=== PATIENT | male | born 1930 | race Caucasian/White ===

== ENCOUNTER 2016-06-03 15:50 | Inpatient (IN) | payer OTHER ==
[2016-06-03] MEDS ORDERED: TYLENOL PO PRN (16:09)
[2016-06-03] MEDS ORDERED: MORPHINE 4 MG/ML SYRINGE IVP PRN (16:09)
[2016-06-03] MEDS ORDERED: ATROPINE SULFATE PFS IVP PRN (16:09)
[2016-06-03] MEDS ORDERED: NITROSTAT SL PRN (16:09)
[2016-06-03] MEDS ORDERED: VISTARIL INJ IM PRN (16:09)
[2016-06-03 16:27] LABS: BASOPHILS % (AUTO) 0.3 % (0.0-3.0); EOSINOPHILS # (AUTO) 0.1 K/ul (0.0-0.7); EOSINOPHILS % (AUTO) 1.3 % (0.0-7.0); HEMATOCRIT 38.3 % (42.0-52.0); HEMOGLOBIN 12.8 g/dl (14.0-18.0); IMMATURE GRANULOCYTE % (AUTO) 0.3 % (0.0-5.0); LYMPHOCYTES # (AUTO) 1.1 K/uL (0.60-3.4); MEAN CORPUSCULAR HEMOGLOBIN 31.6 pg (27.0-31.0); MEAN CORPUSCULAR HGB CONC 33.4 (31.8-35.4); MEAN CORPUSCULAR VOLUME 94.6 fl (80.0-94.0); MONOCYTES # (AUTO) 0.1 K/uL (0.4-2.0); MONOCYTES % (AUTO) 1.1 (0-10); PLATELET COUNT 160 10^3/uL (140-440); RED BLOOD COUNT 4.05 10^6/ul (4.70-6.10); WHITE BLOOD COUNT 6.23 K/ul (4.2-10.2)
[2016-06-03 16:35] VITALS: BMI 28.3
--- NOTE | 2016-06-03 16:38 | DI ---
EXAM: Chest one view, frontal view only. HISTORY: Cough, bronchitis. COMPARISON: 05/25/2012. FINDINGS: Post CABG changes noted. There is mild tortuosity of the thoracic aorta. The heart size is normal. There is no pulmonary vascular congestion. Calcified pleural plaquing noted on the lef t. The lungs are clear. No pleural effusion or pneumothorax is seen. No acute osseous abnormality is identified. Since the prior study, there has been no significant interval change. IMPRESSION: No acute cardiopulmonary process.
[2016-06-03] MEDS: ROCEPHIN 1 GM in SODIUM CHLORIDE 100 ML IV SCH (16:39)
[2016-06-03] MEDS: DEXTROSE 5%-1/2NS IV SOLUTION 1,000 ML IV SCH (16:39)
[2016-06-03] MEDS: SOLU-CORTEF 250 MG IVP SCH (16:40)
[2016-06-03] MEDS: ZITHROMAX PO SCH (16:40)
[2016-06-03] MEDS ORDERED: TRAMADOL HCL PO PRN (16:54)
[2016-06-03] MEDS ORDERED: [UNRECOGNIZED DRUG - OTHER] PO PRN (16:54)
[2016-06-03] MEDS ORDERED: ACETAMINOPHEN PO PRN (16:54)
[2016-06-03 17:02] LABS: ALANINE AMINOTRANSFERASE 16 U/L (12-78); ALBUMIN 3.8 g/dL (3.4-5.0); ALBUMIN/GLOBULIN RATIO 1.06; ALKALINE PHOSPHATASE 54 U/L (56-119); ANION GAP 16.1; ASPARTATE AMINO TRANSFERASE 22 U/L (15-37); BILIRUBIN,TOTAL 0.86 mg/dL (0.00-1.20); BLOOD UREA NITROGEN 32 mg/dL (7-18); BUN/CREATININE RATIO 19.39; CALCIUM 9.3 mg/dL (8.2-10.2); CARBON DIOXIDE 24 mmol/L (23-31); CHLORIDE 103 mmol/L (98-107); CREATINE KINASE 115 U/L; CREATININE 1.65 mg/dL (0.60-1.10); GLUCOSE 111 mg/dL (82-115); MYOGLOBIN 92 ng/ml; POTASSIUM 5.1 mmol/L (3.5-5.1); SODIUM 138 mmol/L (136-145); TOTAL PROTEIN 7.4 g/dL (5.8-8.1)
[2016-06-03 17:07] LABS: CREATINE KINASE MB 1.6 ng/ml (0.0-3.6)
[2016-06-03] MEDS: XOPENEX 1.25 MG NEB SCH ×2 (18:52→23:03)
[2016-06-03] MEDS ORDERED: NON-FORMULARY MEDICATION (Simvastatin [Zocor] 20 MG) PO SCH ×22 (21:00)
[2016-06-03] MEDS ORDERED: MIDODRINE HCL 5 MG PO SCH (21:00)
[2016-06-03] MEDS ORDERED: ZOCOR ONE (21:07)
[2016-06-03] MEDS: VALIUM PO SCH (21:09)
[2016-06-03 22:01] LABS: BILIRUBIN,URINE Negative (NEGATIVE); KETONES,URINE Negative (NEGATIVE); LEUKOCYTE ESTERASE ,URINE Negative (NEGATIVE); NITRITE,URINE Negative (NEGATIVE); PH,URINE 5.5 (5-9); PROTEIN,URINE Negative (NEGATIVE); URINE, BLOOD Negative (NEGATIVE)
[2016-06-03 22:02] LABS: ADD URINE MICROSCOPIC NO
[2016-06-04] MEDS: SOLU-CORTEF 250 MG IVP SCH ×4 (00:48→21:15)
[2016-06-04 01:20] LABS: ALBUMIN 3.3 g/dL (3.4-5.0); ALBUMIN/GLOBULIN RATIO 1.03; ANION GAP 14.2; BILIRUBIN,TOTAL 0.5 mg/dL (0.00-1.20); BUN/CREATININE RATIO 20.83; CALCIUM 8.7 mg/dL (8.2-10.2); CREATININE 1.68 mg/dL (0.60-1.10); POTASSIUM 4.2 mmol/L (3.5-5.1); TOTAL PROTEIN 6.5 g/dL (5.8-8.1)
[2016-06-04 01:24] LABS: BASOPHILS # (AUTO) 0.1 K/uL (0-0.2); BASOPHILS % (AUTO) 1.4 % (0.0-3.0); HEMATOCRIT 34.2 % (42.0-52.0); HEMOGLOBIN 11.4 g/dl (14.0-18.0); IMMATURE GRANULOCYTE % (AUTO) 0.8 % (0.0-5.0); LYMPHOCYTES # (AUTO) 0.5 K/uL (0.60-3.4); LYMPHOCYTES % (AUTO) 14.7 (10.0-50.0); MEAN CORPUSCULAR HEMOGLOBIN 31.8 pg (27.0-31.0); MEAN CORPUSCULAR HGB CONC 33.3 (31.8-35.4); MEAN CORPUSCULAR VOLUME 95.3 fl (80.0-94.0); MONOCYTES # (AUTO) 0.1 K/uL (0.4-2.0); MONOCYTES % (AUTO) 1.7 (0-10); NEUTROPHILS # (AUTO) 2.9 K/ul (2.0-6.9); NEUTROPHILS % (AUTO) 81.4; PLATELET COUNT 141 10^3/uL (140-440); RED BLOOD COUNT 3.59 10^6/ul (4.70-6.10); WHITE BLOOD COUNT 3.53 K/ul (4.2-10.2)
[2016-06-04 01:28] LABS: TROPONIN I 0.02 ng/ml (0.0000-0.4000)
[2016-06-04] MEDS ORDERED: SYNTHROID ONE (03:59)
[2016-06-04] MEDS: DEXTROSE 5%-1/2NS IV SOLUTION 1,000 ML IV SCH ×2 (04:55→18:47)
[2016-06-04] MEDS: XOPENEX 1.25 MG NEB SCH ×4 (05:22→22:54)
[2016-06-04] MEDS: LASIX TAB PO SCH (05:42)
[2016-06-04] MEDS ORDERED: SYNTHROID PO SCH (06:30)
[2016-06-04] MEDS ORDERED: ULTRAM PO PRN (07:23)
[2016-06-04] MEDS ORDERED: TYLENOL PO PRN (07:24)
[2016-06-04] MEDS: ROCEPHIN 1 GM in SODIUM CHLORIDE 100 ML IV SCH (08:24)
[2016-06-04] MEDS: ZITHROMAX PO SCH (08:25)
[2016-06-04] MEDS: LANOXIN PO SCH (08:25)
[2016-06-04] MEDS: ASPIRIN EC PO SCH (08:25)
[2016-06-04] MEDS: MIDODRINE PO SCH ×2 (08:25→21:13)
[2016-06-04] MEDS: FLOMAX PO SCH (08:25)
[2016-06-04] MEDS: FERROUS SULFATE PO SCH (08:25)
[2016-06-04] MEDS: MICRO-K CAP PO SCH (08:25)
[2016-06-04] MEDS ORDERED: NON-FORMULARY MEDICATION (Rivaroxaban [Xarelto] 15 MG) PO SCH ×22 (09:00)
[2016-06-04] MEDS ORDERED: NON-FORMULARY MEDICATION (Ferrous Sulfate [Iron] 325 MG) PO SCH ×22 (09:00)
[2016-06-04] MEDS ORDERED: ULTRAM PO SCH (10:00)
--- NOTE | 2016-06-04 11:31 | HP ---
DATE OF SERVICE: 06/03/16 REASON FOR HOSPITALIZATION: Acute bronchitis HISTORY OF PRESENT ILLNESS: This is an 86-year-old male patient who was treated with Z-pack and steroids 7 days ago and didn't help. He is now wheezing with respiratory distress, unable to eat times two days. He has yellowish sputum, maybe fever. No symptoms of CHF/ CAD. Shortness of breath with exertion. Coughing all night, unable to sleep. REVIEW OF SYSTEMS: CONSTITUTIONAL: Fever and fatigue. HEENT: Sinus drainage. No sore throat. RESPIRATORY: No cough, no congestion. CARDIOVASCULAR: No atypical chest pain for coronary artery disease. No angina. No CHF symptoms. No palpitations. Shortness of breath. GASTROINTESTINAL: No melena or abdominal pain. No GERD. GENITOURINARY: No hematuria, no prostatism, no polyuria. DIE MAKER APPRENTICE: No blackout, no dizziness, no headache, no double vision. MUSCULOSKELETAL: Osteoarthritis pain. No joint swelling. ENDOCRINE: No weight loss, no weight gain. SKIN: Not dry, no rash. PSYCHIATRIC: Not anxious, no depression, no suicidal thoughts, no homicidal thoughts. PAST MEDICAL HISTORY: 1. Atrial fibrillation 2. CKD 3. Aortic aneurysm 4. Anemia 5. Peripheral arterial disease 6. Sciatica 7. Osteoarthritis 8. Hypotension PAST SURGICAL HISTORY: 1. Hernia 2. CABG 3. Heart cath 4. Vascular 5. Gallbladder SOCIAL HISTORY: The patient is and is retired. Nonsmoker. No alcohol use. FAMILY HISTORY: Father and mother are . MEDICATIONS: (HOME) 1. Tramadol/Acetaminophen one tab p.o. q.8h p.r.n. 2. Rivaroxaban (Xarelto) 15 mg p.o. daily 3. Digoxin (Lanoxin) 125 mg p.o. daily 4. Tamsulosin (Flomax) 0.4 mg p.o. daily 5. Simvastatin (Zocor) 20 mg p.o. bedtime 6. Potassium Chloride (Micro-K Cap) 10 mEq p.o. daily 7. Midodrine 5 mg p.o. b.i.d. 8. Levothyroxine (Synthroid) 100 mg p.o. daily 9. Furosemide (Lasix) 20 mg p.o. daily 10. Ferrous Sulfate (Iron) 325 mg p.o. daily 11. Diazepam 5 mg p.o. bedtime ALLERGIES: BENICAR (DIZZINESS, OTHER), LISINOPRIL (DIZZINESS, OTHER) PHYSICAL EXAMINATION: V/S: Pulse 82, BP 102/42, temperature 97.7, 02 sat 96%. Weight 201.9 lbs; height 6'0". BMI 27.3. GENERAL APPEARANCE: Oriented times three. Pallor positive. Skin is dry. HEENT: Normal. NECK: No JVP, no bruits. RESPIRATORY: Wheezing bilaterally. CARDIOVASCULAR: S1, S2, no S3, no murmurs. No cyanosis, clubbing. No ascites. GI/ABDOMEN: No tenderness. Bowel sounds are active. EXTREMITIES: No edema, pulses +1, equal. DIE MAKER APPRENTICE: Deep tendon reflexes, sensory, motor and gait all normal. RECTAL/PROSTATE: 04/02 (2.1) Prostate; Colonoscopy Dr. Powers/[place], 2013. ASSESSMENT: 1. ACUTE BRONCHITIS/PLEURITIC PAIN 2. HYPERTENSION 3. HISTORY OF ATRIAL FIBRILLATION 4. SCIATICA 5. DYSLIPIDEMIA 6. ANEMIA 7. PERIPHERAL ARTERIAL DISEASE 8. AORTIC ANEURYSM 9. CABG/CAD 10. CHRONIC KIDNEY DISEASE, STAGE 3 11. OSTEOARTHRITIS, RIGHT HIP PLAN: 1. Admit with routine telemetry orders 2. 2 cc Decadron IM 3. Regular diet 4. 1000 cc D5/1/2 NS 12 hourly 5. Solu-Cortef 125 mg now and q8.hr 6. Rocephin 1 mg IV PB q.24hr 7. Zithromax 500 mg p.o. daily times 3 days 8. Sputum for culture and sensitivity 9. Continue all medications 10. Daily CBC/CMP 11. Xopenex nebs q.i.d. TIME SPENT: More than 70 minutes. MTDD
[2016-06-04] MEDS ORDERED: LANOXIN IVP STA ×2 (13:26→16:27)
[2016-06-04] MEDS: TYLENOL PO SCH ×2 (14:00→21:15)
[2016-06-04] MEDS: ULTRAM PO SCH ×2 (14:00→21:14)
[2016-06-04] MEDS: XARELTO PO SCH (17:27)
[2016-06-04] MEDS: ZOCOR PO SCH (21:13)
[2016-06-04] MEDS: VALIUM PO SCH (21:14)
[2016-06-05] MEDS: XOPENEX 1.25 MG NEB SCH ×4 (04:55→23:05)
[2016-06-05] MEDS: SYNTHROID PO SCH (05:48)
[2016-06-05] MEDS: LASIX TAB PO SCH (05:48)
[2016-06-05] MEDS: TYLENOL PO SCH ×3 (05:48→21:03)
[2016-06-05] MEDS: DEXTROSE 5%-1/2NS IV SOLUTION 1,000 ML IV SCH (05:49)
[2016-06-05] MEDS: SOLU-CORTEF 250 MG IVP SCH ×3 (05:49→21:05)
[2016-06-05] MEDS: ULTRAM PO SCH ×3 (05:49→21:03)
[2016-06-05 06:07] LABS: BASOPHILS % (AUTO) 0.1 % (0.0-3.0); HEMATOCRIT 34.4 % (42.0-52.0); HEMOGLOBIN 11.3 g/dl (14.0-18.0); IMMATURE GRANULOCYTE % (AUTO) 0.7 % (0.0-5.0); LYMPHOCYTES # (AUTO) 0.7 K/uL (0.60-3.4); MEAN CORPUSCULAR HEMOGLOBIN 31.3 pg (27.0-31.0); MEAN CORPUSCULAR HGB CONC 32.8 (31.8-35.4); MEAN CORPUSCULAR VOLUME 95.3 fl (80.0-94.0); MONOCYTES # (AUTO) 0.4 K/uL (0.4-2.0); MONOCYTES % (AUTO) 3.3 (0-10); NEUTROPHILS # (AUTO) 9.9 K/ul (2.0-6.9); NEUTROPHILS % (AUTO) 89.9; PLATELET COUNT 161 10^3/uL (140-440); RED BLOOD COUNT 3.61 10^6/ul (4.70-6.10); WHITE BLOOD COUNT 11.02 K/ul (4.2-10.2)
[2016-06-05 06:29] LABS: ALBUMIN 3.3 g/dL (3.4-5.0); ALBUMIN/GLOBULIN RATIO 1.03; ANION GAP 15.5; BILIRUBIN,TOTAL 0.26 mg/dL (0.00-1.20); BUN/CREATININE RATIO 23.44; CALCIUM 8.7 mg/dL (8.2-10.2); CREATININE 1.45 mg/dL (0.60-1.10); POTASSIUM 4.5 mmol/L (3.5-5.1); TOTAL PROTEIN 6.5 g/dL (5.8-8.1)
[2016-06-05] MEDS: ASPIRIN EC PO SCH (08:51)
[2016-06-05] MEDS: LANOXIN PO SCH (08:52)
[2016-06-05] MEDS: FLOMAX PO SCH (08:52)
[2016-06-05] MEDS: FERROUS SULFATE PO SCH (08:52)
[2016-06-05] MEDS: MICRO-K CAP PO SCH (08:53)
[2016-06-05] MEDS: MIDODRINE PO SCH ×2 (08:53→21:03)
[2016-06-05] MEDS: ZITHROMAX PO SCH (08:54)
[2016-06-05] MEDS: ROCEPHIN 1 GM in SODIUM CHLORIDE 100 ML IV SCH (08:54)
--- NOTE | 2016-06-05 13:08 | PCM.PROG ---
Attending Provider: ATTENDING PROVIDER: Dr. PASHA LEWIS DATE OF SERVICE: 06/04/16 SUBJECTIVE: This 86 year old WHITE/ M was hospitalized 06/03/16. The patient is hospitalized with acute bronchitis and bilateral wheezing of a couple weeks duration. The patient's condition has improved markedly. No audible wheezing. REVIEW OF SYSTEMS: CONSTITUTIONAL: No night sweats. No fatigue, malaise, lethargy. No fever or chills. HEENT: Eyes: No visual changes. No eye pain. No eye discharge. ENT: No runny nose. No epistaxis. No sinus pain. No odynophagia. No congestion. RESPIRATORY: No cough, no congestion. No hemoptysis. CARDIOVASCULAR: No angina symptoms. No CHF symptoms. No atypical chest pain for CAD. No palpitations. Breathing is better. GASTROINTESTINAL: Good appetite. No abdominal pain. No nausea or vomiting. No diarrhea or constipation. No hematemesis. No hematochezia. GENITOURINARY: No urgency. No frequency. No dysuria. No hematuria. No obstructive symptoms. No discharge. No pain. No significant abnormal bleeding. MUSCULOSKELETAL: No musculoskeletal pain; no joint swelling. NEUROLOGICAL: Awake, alert, oriented to time, place and person. No headache. No neck pain. No syncope. No seizures. No dizziness. PSYCHIATRIC: Not anxious. No depression. No suicidal thoughts. No homicidal thoughts. SKIN: No rash. No lesions. No wounds. ENDOCRINE: No unexplained weight loss. No weight gain. HEMATOLOGIC/LYMPHATIC: No anemia. No purpura. No petechiae. No prolonged or excessive bleeding. No palpable lymph nodes. PHYSICAL EXAMINATION: GENERAL: The patient is awake, alert and oriented, sitting up in bed in no distress. VITAL SIGNS: Temperature 96.9 F, Pulse 93, Respiratory Rate 18, BP 112/70, Pulse Ox 96% HEENT: Head normocephalic, atraumatic. Eyes: Extraocular muscles are intact. Pupils are equal, round and reactive to light and accommodation. Ears: No lesions. Nose appeared normal. Throat: No exudate or erythema. NECK: Supple. No JVD, no carotid bruit. No lymphadenopathy or thyromegaly. LUNGS: Decreased breath sounds, faint wheeze, good air entry. Percussion note normal. Chest symmetrical. HEART: S1, S2, no S3. No murmurs. No cyanosis or clubbing. No ascites. Pulses: Dorsalis pedis and posterior tibial pulses +1 to +2 both sides. ABDOMEN: Soft. Non-tender. Bowel sounds active. No CVA tenderness. No mass felt. EXTREMITIES: No edema. Full range of motion of all extremities, equal. NEUROLOGIC: No focal deficit. Cranial nerves II through XII are grossly intact. No headache, no double vision or headache. SKIN: Not dry. Intact. Turgor-better. LYMPHATIC: No palpable lymph nodes/no lymphedema. MUSCULOSKELETAL: Normal joints with no swelling. Muscle tone is normal. LAB REVIEW: 06/04/16 00:57 06/04/16 00:57 06/04/16 00:57: WBC 3.53 L, RBC 3.59 L, Hgb 11.4 L, Hct 34.2 L, MCV 95.3 H, MCH 31.8 H, MCHC 33.3, RDW Coeff of Lloyd 11.9, Plt Count 141, Immature Gran % (Auto) 0.8, Neut % (Auto) 81.4, Lymph % (Auto) 14.7, [place] % (Auto) 1.7, Eos % (Auto) 0.0, Baso % (Auto) 1.4, Immature Gran # (Auto) 0.0, Neut # 2.9, Lymph # 0.5 L, [place] # 0.1 L, Eos # 0.0, Baso # 0.1, Sodium 138, Potassium 4.2, Chloride 101, Carbon Dioxide 27, Anion Gap 14.2, BUN 35 H, Creatinine 1.68 H, Estimated GFR ( MDRD) 39.00, BUN/Creatinine Ratio 20.83, Glucose 207 H D, Calcium 8.7, Total Bilirubin 0.50, AST 19, ALT 14, Alkaline Phosphatase 48 L, Total Creatine Kinase 88, Myoglobin 66, Troponin I 0.0200, Total Protein 6.5, Albumin 3.3 L, Globulin 3.2, Albumin/Globulin Ratio 1.03 06/03/16 20:45: Urine Color Yellow, Urine Clarity Clear, Urine pH 5.5, Ur Specific [place] 1.015, Urine Protein Negative, Urine Glucose (UA) Negative, Urine Ketones Negative, Urine Blood Negative, Urine Nitrite Negative, Urine Bilirubin Negative, Urine Urobilinogen 0.2, Ur Leukocyte Esterase Negative 06/03/16 16:20: WBC 6.23, RBC 4.05 L, Hgb 12.8 L, Hct 38.3 L, MCV 94.6 H, MCH 31.6 H, MCHC 33.4, RDW Coeff of Lloyd 12.0, Plt Count 160, Immature Gran % (Auto) 0.3, Neut % (Auto) 80.0, Lymph % (Auto) 17.0, [place] % (Auto) 1.1, Eos % (Auto) 1.3, Baso % (Auto) 0.3, Immature Gran # (Auto) 0.0, Neut # 5.0, Lymph # 1.1, [place] # 0.1 L, Eos # 0.1, Baso # 0.0, Sodium 138, Potassium 5.1, Chloride 103, Carbon Dioxide 24, Anion Gap 16.1, BUN 32 H, Creatinine 1.65 H, Estimated GFR ( MDRD) 40.00, BUN/Creatinine Ratio 19.39, Glucose 111, Calcium 9.3, Total Bilirubin 0.86, AST 22, ALT 16, Alkaline Phosphatase 54 L, Total Creatine Kinase 115, CK-MB (CK-2) 1.6, CK-MB (CK-2) % 1.11831, Myoglobin 92, Troponin I < 0.0100, Total Protein 7.4, Albumin 3.8, Globulin 3.6, Albumin/Globulin Ratio 1.06 ASSESSMENT: 1. Acute bronchitis/pneumonitis/dehydration with renal azotemia, improving 2. Atrial fibrillation with rapid ventricular response in the beginning 3. Chronic lung disease 4. Hypertension history 5. History of syncope, postural for a number of years 6. Hyperglycemia from steroids PLAN: 1. Nebs 2. Steroids 3. Antibiotics 4. Daily CBC and CMP 5. Digoxin level tomorrow morning Plan and coordination of the patient's care discussed in the presence of Final Inspector and nurse. CONDITION: STABLE SCRIBED BY: AIMEE COATES Track Oiler scribed while in presence of service performed by Dr. PASHA LEWIS on 06/04/16 (0750)
--- NOTE | 2016-06-05 13:25 | PCM.PROG ---
Attending Provider: ATTENDING PROVIDER: Dr. PASHA LEWIS DATE OF SERVICE: 06/05/16 SUBJECTIVE: This 86 year old WHITE/ M was hospitalized 06/03/16. The patient is hospitalized with acute bronchitis/pneumonitis/dehydration with renal azotemia which has resolved. Kidney functions are acceptable. Hydration status is improved. The patient is feeling a lot better today. Skin turgor is better. Yesterday, the patient had atrial fibrillation with rapid ventricular response. With change in posture and 0.5 mg of Lanoxin given, rate is acceptable now. REVIEW OF SYSTEMS: CONSTITUTIONAL: No night sweats. No fatigue, malaise, lethargy. No fever or chills. HEENT: Eyes: No visual changes. No eye pain. No eye discharge. ENT: Sinus drainage at night. No epistaxis. No sinus pain. No odynophagia. No congestion. RESPIRATORY: Less cough, no congestion. No hemoptysis. CARDIOVASCULAR: No angina symptoms. No CHF symptoms. No atypical chest pain for CAD. No palpitations. No shortness of breath. GASTROINTESTINAL: No abdominal pain. No nausea or vomiting. No diarrhea or constipation. No hematemesis. No hematochezia. GENITOURINARY: No urgency. No frequency. No dysuria. No hematuria. No obstructive symptoms. No discharge. No pain. No significant abnormal bleeding. MUSCULOSKELETAL: No musculoskeletal pain; no joint swelling. NEUROLOGICAL: Awake, alert, oriented to time, place and person. No headache. No neck pain. No syncope. No seizures. No dizziness. PSYCHIATRIC: Not anxious. No depression. No suicidal thoughts. No homicidal thoughts. SKIN: No rash. No lesions. No wounds. ENDOCRINE: No unexplained weight loss. No weight gain. HEMATOLOGIC/LYMPHATIC: No anemia. No purpura. No petechiae. No prolonged or excessive bleeding. No palpable lymph nodes. PHYSICAL EXAMINATION: GENERAL: The patient is awake, alert and oriented, lying/sitting in bed in no distress. VITAL SIGNS: Temperature 96.8 F, Pulse 105, Respiratory Rate 18, BP 126/70, Pulse Ox 95% HEENT: Head normocephalic, atraumatic. Eyes: Extraocular muscles are intact. Pupils are equal, round and reactive to light and accommodation. Ears: No lesions. Nose appeared normal. Throat: No exudate or erythema. NECK: Supple. No JVD, no carotid bruit. No lymphadenopathy or thyromegaly. LUNGS: Mild expiratory wheeze with good air entry. Percussion note normal. Chest symmetrical. HEART: S1, S2, no S3. No murmurs. No cyanosis or clubbing. No ascites. Pulses: Dorsalis pedis and posterior tibial pulses +1 to +2 both sides. ABDOMEN: Soft. Non-tender. Bowel sounds active. No CVA tenderness. No mass felt. EXTREMITIES: No edema. Full range of motion of all extremities, equal. NEUROLOGIC: No focal deficit. Cranial nerves II through XII are grossly intact. No headache, no double vision or headache. SKIN: Not dry. Intact. Turgor-better. LYMPHATIC: No palpable lymph nodes/no lymphedema. MUSCULOSKELETAL: Normal joints with no swelling. Muscle tone is normal. LAB REVIEW: 06/05/16 05:30 06/05/16 05:30 06/05/16 05:30: WBC 11.02 H D, RBC 3.61 L, Hgb 11.3 L, Hct 34.4 L, MCV 95.3 H, MCH 31.3 H, MCHC 32.8, RDW Coeff of Lloyd 12.2, Plt Count 161, Immature Gran % ( Auto) 0.7, Neut % (Auto) 89.9, Lymph % (Auto) 6.0 L, [place] % (Auto) 3.3, Eos % ( Auto) 0.0, Baso % (Auto) 0.1, Immature Gran # (Auto) 0.1, Neut # 9.9 H, Lymph # 0.7, [place] # 0.4, Eos # 0.0, Baso # 0.0, Sodium 140, Potassium 4.5, Chloride 106 , Carbon Dioxide 23, Anion Gap 15.5, BUN 34 H, Creatinine 1.45 H, Estimated GFR (MDRD) 46.00, BUN/Creatinine Ratio 23.44, Glucose 138 H, Calcium 8.7, Total Bilirubin 0.26, AST 22, ALT 14, Alkaline Phosphatase 47 L, Total Protein 6.5, Albumin 3.3 L, Globulin 3.2, Albumin/Globulin Ratio 1.03, Digoxin 1.12 06/04/16 13:32: Digoxin 0.42 L ASSESSMENT: 1. Acute bronchitis/pneumonitis/dehydration, resolved 2. Renal azotemia, resolved 3. Chronic lung disease 4. Atrial fibrillation with rapid ventricular response in the beginning. 5. Hypertension history 6. History of syncope, postural for a number of years 7. Hyperglycemia from steroids PLAN: 1. Continue antibiotics, IV steroids and nebs. 2. Discontinue IV fluids. Plan and coordination of the patient's care discussed in the presence of Palliative Nurse and nurse. CONDITION: Stable SCRIBED BY: AIMEE COATES, Pbx Operator scribed while in presence of service performed by Dr. PASHA LEWIS on 06/05/16 (0801)
[2016-06-05] MEDS: XARELTO PO SCH (17:11)
[2016-06-05] MEDS: ZOCOR PO SCH (21:03)
[2016-06-05] MEDS: VALIUM PO SCH (21:04)
[2016-06-06] MEDS: XOPENEX 1.25 MG NEB SCH ×2 (05:38→11:01)
[2016-06-06] MEDS: ULTRAM PO SCH (06:00)
[2016-06-06] MEDS: TYLENOL PO SCH (06:00)
[2016-06-06 06:23] LABS: BASOPHILS % (AUTO) 0.2 % (0.0-3.0); HEMATOCRIT 32.3 % (42.0-52.0); HEMOGLOBIN 10.8 g/dl (14.0-18.0); IMMATURE GRANULOCYTE % (AUTO) 1.1 % (0.0-5.0); LYMPHOCYTES % (AUTO) 9.6 (10.0-50.0); MEAN CORPUSCULAR HEMOGLOBIN 31.9 pg (27.0-31.0); MEAN CORPUSCULAR HGB CONC 33.4 (31.8-35.4); MEAN CORPUSCULAR VOLUME 95.3 fl (80.0-94.0); MONOCYTES # (AUTO) 0.4 K/uL (0.4-2.0); MONOCYTES % (AUTO) 4.1 (0-10); PLATELET COUNT 152 10^3/uL (140-440); RED BLOOD COUNT 3.39 10^6/ul (4.70-6.10); WHITE BLOOD COUNT 10.64 K/ul (4.2-10.2)
[2016-06-06] MEDS: SOLU-CORTEF 250 MG IVP SCH (06:27)
[2016-06-06] MEDS: SYNTHROID PO SCH (06:32)
[2016-06-06] MEDS: LASIX TAB PO SCH (06:32)
[2016-06-06 06:40] LABS: ALBUMIN/GLOBULIN RATIO 1.03; ANION GAP 13.4; BILIRUBIN,TOTAL 0.31 mg/dL (0.00-1.20); BUN/CREATININE RATIO 21.87; CALCIUM 8.4 mg/dL (8.2-10.2); CREATININE 1.28 mg/dL (0.60-1.10); POTASSIUM 4.4 mmol/L (3.5-5.1); TOTAL PROTEIN 5.9 g/dL (5.8-8.1)
[2016-06-06] MEDS: ASPIRIN EC PO SCH (08:59)
[2016-06-06] MEDS: FERROUS SULFATE PO SCH (09:01)
[2016-06-06] MEDS: ROCEPHIN 1 GM in SODIUM CHLORIDE 100 ML IV SCH (09:01)
[2016-06-06] MEDS: MIDODRINE PO SCH (09:01)
[2016-06-06] MEDS: FLOMAX PO SCH (09:01)
[2016-06-06] MEDS: MICRO-K CAP PO SCH (09:01)
[2016-06-06] MEDS: LANOXIN PO SCH (09:01)
--- NOTE | 2016-06-06 09:42 | PCM.PROG ---
Attending Provider: ATTENDING PROVIDER: Dr. PASHA LEWIS DATE OF SERVICE: 06/06/16 SUBJECTIVE: This 86 year old WHITE/ M was hospitalized 06/03/16. The patient is hospitalized with acute bronchitis, dehydration and renal azotemia. The patient 's condition has improved remarkably, is not in distress. He states he is feeling a lot better. Appetite is improved. He has only a mild cough. REVIEW OF SYSTEMS: CONSTITUTIONAL: No night sweats. No fatigue, malaise, lethargy. No fever or chills. HEENT: Eyes: No visual changes. No eye pain. No eye discharge. ENT: No runny nose. No epistaxis. No sinus pain. No odynophagia. No congestion. RESPIRATORY: Mild cough and congestion. No hemoptysis. CARDIOVASCULAR: No angina symptoms. No CHF symptoms. No atypical chest pain for CAD. No palpitations. No shortness of breath. GASTROINTESTINAL: Improved appetite. No abdominal pain. No nausea or vomiting. No diarrhea or constipation. No hematemesis. No hematochezia. GENITOURINARY: No urgency. No frequency. No dysuria. No hematuria. No obstructive symptoms. No discharge. No pain. No significant abnormal bleeding. MUSCULOSKELETAL: No musculoskeletal pain; no joint swelling. NEUROLOGICAL: Awake, alert, oriented to time, place and person. No headache. No neck pain. No syncope. No seizures. No dizziness. PSYCHIATRIC: Not anxious. No depression. No suicidal thoughts. No homicidal thoughts. SKIN: No rash. No lesions. No wounds. ENDOCRINE: No unexplained weight loss. No weight gain. HEMATOLOGIC/LYMPHATIC: No anemia. No purpura. No petechiae. No prolonged or excessive bleeding. No palpable lymph nodes. PHYSICAL EXAMINATION: GENERAL: The patient is awake, alert and oriented, lying/sitting in bed in no distress. VITAL SIGNS: Temperature 96.9 F, Pulse 97, Respiratory Rate 20, BP 124/78, Pulse Ox 93% HEENT: Head normocephalic, atraumatic. Eyes: Extraocular muscles are intact. Pupils are equal, round and reactive to light and accommodation. Ears: No lesions. Nose appeared normal. Throat: No exudate or erythema. NECK: Supple. No JVD, no carotid bruit. No lymphadenopathy or thyromegaly. LUNGS: Decreased breath sounds with mild wheeze. Percussion note normal. Chest symmetrical. HEART: S1, S2, no S3. No murmurs. No cyanosis or clubbing. No ascites. Pulses: Dorsalis pedis and posterior tibial pulses +1 to +2 both sides. ABDOMEN: Soft. Non-tender. Bowel sounds active. No CVA tenderness. No mass felt. EXTREMITIES: No edema. Full range of motion of all extremities, equal. NEUROLOGIC: No focal deficit. Cranial nerves II through XII are grossly intact. No headache, no double vision or headache. SKIN: Not dry. Intact. Turgor-normal. LYMPHATIC: No palpable lymph nodes/no lymphedema. MUSCULOSKELETAL: Normal joints with no swelling. Muscle tone is normal. LAB REVIEW: 06/06/16 06:00 06/06/16 06:00 06/06/16 06:00: WBC 10.64 H, RBC 3.39 L, Hgb 10.8 L, Hct 32.3 L, MCV 95.3 H, MCH 31.9 H, MCHC 33.4, RDW Coeff of Lloyd 12.5, Plt Count 152, Immature Gran % ( Auto) 1.1, Neut % (Auto) 85.0, Lymph % (Auto) 9.6 L, [place] % (Auto) 4.1, Eos % ( Auto) 0.0, Baso % (Auto) 0.2, Immature Gran # (Auto) 0.1, Neut # 9.0 H, Lymph # 1.0, [place] # 0.4, Eos # 0.0, Baso # 0.0, Sodium 143, Potassium 4.4, Chloride 107 , Carbon Dioxide 27, Anion Gap 13.4, BUN 28 H, Creatinine 1.28 H, Estimated GFR (MDRD) 53.00, BUN/Creatinine Ratio 21.87, Glucose 123 H, Calcium 8.4, Total Bilirubin 0.31, AST 30, ALT 21, Alkaline Phosphatase 43 L, Total Protein 5.9, Albumin 3.0 L, Globulin 2.9, Albumin/Globulin Ratio 1.03 ASSESSMENT: 1. ACUTE BRONCHITIS 2. CHRONIC LUNG DISEASE 3. CORONARY ARTERY BYPASS GRAFTING 4. ATRIAL FIBRILLATION PLAN: 1. Discharge home 2. Keflex 500 mg b.i.d. times 7 days 3. Prednisone 10 mg p.o. daily times 7 days 4. Other medications to be continued. 5. Instructed to followup in the office next week Plan and coordination of the patient's care discussed in the presence of Survey Methodologist and nurse. EDUCATION: Discussed with the patient plans for discharge, medications and followup. The side effects of the medications discussed to include side effects of steroids such as avascular necrosis of femoral head, cataracts, diabetes and osteoporosis. The patient verbalizes understanding and is in agreement. CONDITION: Stable SCRIBED BY: AIMEE COATES Roving Sizer scribed while in presence of service performed by Dr. PASHA LEWIS on 06/06/16 ([id number])
[2016-06-06 10:17] VITALS: BP 103/61; TEMP 96.5
--- NOTE | 2016-06-06 10:40 | CM.DICTOOL ---
ADMISSION: 06/03/16 15:50 DISCHARGE: 06/06/16 DATE OF SERVICE: 06/06/16 FINAL DIAGNOSIS ACUTE/CHRONIC BRONCHITIS PLEURITIC TYPE PAIN DEHYDRATION RENAL AZOTEMIA HYPERGLYCEMIA SECONDARY TO STEROIDS CAD AND HISTORY OF [place] S/P CABG, 1988 HISTORY OF ATRIAL FIBRILLATION (XARELTO) HYPOTENSION (MIDODRINE) PERIPHERAL ARTERIAL DISEASE ABDOMINAL AORTIC ANEURYSM DYSLIPIDEMIA CHRONIC KIDNEY DISEASE, STAGE 3 THYROID DISEASE ANEMIA SCIATICA OSTEOARTHRITIS RIGHT HIP ANXIETY FORMER SMOKER (STOPPED 1987) CATARACT EXTRACTIONS HERNIA REPAIR CHOLECYSTECTOMY LAST VITALS Temp Pulse Resp BP Pulse Ox 96.9 F L 97 H 20 124/78 93 L 06/06/16 05:40 06/06/16 05:40 06/06/16 05:40 06/06/16 05:40 06/06/16 05:40 ACTIVE MEDICATIONS Diazepam (Valium) 5 mg PO BEDTIME [facility] Last Admin: 06/05/16 21:04 Dose: 5 mg Digoxin (Lanoxin) 125 mcg PO DAILY [facility] Last Admin: 06/05/16 08:52 Dose: 125 mcg Ferrous Sulfate (Ferrous Sulfate) 324 mg PO DAILY [facility] Last Admin: 06/05/16 08:52 Dose: 324 mg Furosemide (Lasix Tab) 20 mg PO 0630 [facility] Last Admin: 06/06/16 06:32 Dose: 20 mg Levothyroxine Sodium (Synthroid) 100 mcg PO 0630 [facility] Last Admin: 06/06/16 06:32 Dose: 100 mcg Midodrine (Midodrine) 5 mg PO BID [facility] Last Admin: 06/05/16 21:03 Dose: 5 mg Potassium Chloride (Micro-K Cap) 10 meq PO DAILY [facility] Last Admin: 06/05/16 08:53 Dose: 10 meq Rivaroxaban (Xarelto) 15 mg PO QPM [facility] Last Admin: 06/05/16 17:11 Dose: 15 mg Simvastatin (Zocor) 20 mg PO BEDTIME [facility] Last Admin: 06/05/16 21:03 Dose: 20 mg Tamsulosin HCl (Flomax) 0.4 mg PO DAILY [facility] Last Admin: 06/05/16 08:52 Dose: 0.4 mg Tramadol HCl (Ultram) 50 mg PO Q8HR [facility] Last Admin: 06/06/16 06:00 Dose: 50 mg ALLERGIES lisinopril Adverse Reaction (Verified 06/04/16 22:59) Dizziness olmesartan [From Benicar] Adverse Reaction (Verified 06/04/16 22:59) Dizziness NEW PRESCRIPTIONS: KEFLEX 500 MG, TAKE ONE TABLET BY MOUTH TWICE DAILY FOR 7 (SEVEN) DAYS PREDNISONE 10 MG, TAKE ONE TABLET BY MOUTH DAILY FOR 7 (SEVEN) DAYS SMOKING: NONSMOKER DISEASE SPECIFIC EDUCATION: BRONCHITIS HOME MEDICATIONS NEW PRESCRIPTIONS ACTIVITY FOLLOW UP LAB REVIEW: 06/06/16 06:00 06/06/16 06:00 06/06/16 06:00: WBC 10.64 H, RBC 3.39 L, Hgb 10.8 L, Hct 32.3 L, MCV 95.3 H, MCH 31.9 H, MCHC 33.4, RDW Coeff of Lloyd 12.5, Plt Count 152, Immature Gran % ( Auto) 1.1, Neut % (Auto) 85.0, Lymph % (Auto) 9.6 L, [place] % (Auto) 4.1, Eos % ( Auto) 0.0, Baso % (Auto) 0.2, Immature Gran # (Auto) 0.1, Neut # 9.0 H, Lymph # 1.0, [place] # 0.4, Eos # 0.0, Baso # 0.0, Sodium 143, Potassium 4.4, Chloride 107 , Carbon Dioxide 27, Anion Gap 13.4, BUN 28 H, Creatinine 1.28 H, Estimated GFR (MDRD) 53.00, BUN/Creatinine Ratio 21.87, Glucose 123 H, Calcium 8.4, Total Bilirubin 0.31, AST 30, ALT 21, Alkaline Phosphatase 43 L, Total Protein 5.9, Albumin 3.0 L, Globulin 2.9, Albumin/Globulin Ratio 1.03 PLAN: DISCHARGE HOME TODAY RETURN TO SEE DR. LEWIS IN 5-7 DAYS. PLEASE PHONE TO SCHEDULE YOUR APPOINTMENT ([phone]) RESUME YOUR HOME MEDICATIONS PER LIST PROVIDED BY THE NURSING STAFF NEW PRESCRIPTIONS: KEFLEX 500 MG, TAKE ONE TABLET BY MOUTH TWICE DAILY FOR 7 (SEVEN) DAYS PREDNISONE 10 MG, TAKE ONE TABLET BY MOUTH DAILY FOR 7 (SEVEN) DAYS ACTIVITY: GET PLENTY OF REST AT HOME. GRADUALLY INCREASE YOUR ACTIVITY LEVEL ACCORDING TO YOUR TOLERATION DIET: REGULAR DIET TOLERATED STAY WELL HYDRATED SUMMARY: THE PATIENT IS ALERT AND ORIENTED X3. HE CURRENTLY RESIDES AT HOME. PRIOR TO ADMISSION MR. KIMBALL DID NOT REQUIRE DME, HOME HEALTH OR HOMEMAKING SERVICES. AT DISCHARGE HE HAS NO DISCHARGE NEEDS FOR THESE SERVICES. HE DESIRES TO RETURN TO HIS HOME. HIS SKIN TURGOR IS INTACT AND WITHOUT DECUBITUS ULCERS AT DISCHARGE. HE IS AWARE AND AGREEABLE FOR DISCHARGE TODAY. PASHA LEWIS M.D.
--- NOTE | 2016-06-09 10:58 | ECHO2D ---
Date of Exam: 06/06/16 Ordering Physician: PASHA LEWIS Reason for Echo: A-FIB, CABG 1989 M-Mode Normal Adult Results LV Dimensions Normal Adult Results AoV Opening excursions >1.6 >1.6 LVEDD-base- 3.5-5.8 4.9 Ao root dimensions 2.0-3.7 4.1 LVESD-base- 3.1-4.6 L. Atrium dimensions 1.9-3.8 5.0 Post. Wall thickness 0.8-1.1 1.3 IV septum (thickness) 0.7-1.2 1.2 Post. Wall excursion 0.72-1.3 NORMAL Septal motion 0.1 Systolic motion R. Ventricular cavity 1.5-2.0 2.5 LVEF 60% 54% Paradoxical septal wall motion MAYBE 2-D : HYPOKINETIC TO MAYBE PARADOXICAL SEPTAL WALL MOTION, VALVES NORMAL, NO EFFUSION, NO THROMBUS, ENLARGED RIGHT VENTRICLE AND LEFT ATRIAL CAVITIES M-MODE: MV: NORMAL AV: NORMAL TV: NORMAL PV: CHAMBER SIZE: ENLARGED LEFT ATRIAL AND RIGHT VENTRICLE CAVITIES WALL MOTION: HYPOKINETIC SEPTUM/PARADOXICAL MAYBE PERICARDIUM: NORMAL INTERPRETATION: 1. BORDERLINE LEFT VENTRICULAR HYPERTROPHY 2. HYPOKINETIC/PARADOXICAL SEPTAL WALL MOTION 3. ENLARGED LEFT ATRIAL AND RIGHT VENTRICLE CAVITIES 4. LEFT VENTRICULAR EJECTION FRACTION 54% MTDD
--- NOTE | 2016-06-11 09:08 | DS ---
DATE OF SERVICE: 06/06/16 FINAL DIAGNOSIS: 1. Acute/ Chronic bronchitis 2. Pleuritic type pain 3. Dehydration 4. Renal Azotemia 5. Hyperglycemia secondary to steroids 6. Coronary artery disease and history of CA, Status post CABG, 1988 7. History of atrial fibrillation(Xarelto) 8. Hypotension (Midodrine) 9. Peripheral Arterial Disease 10.Abdominal aortic aneurysm 11.Dyslipidemia 12.Chronic kidney disease, stage 3 13.Thyroid disease 14.Anemia 15.Sciatica 16.Osteoarthritis right hip 17.Anxiety 18.Former Smoker (stopped 1987) 19.Cataract extractions 20.Hernia Repair 21.Cholecystectomy LAST VITALS: Temperature 96.9, pulse 97, respiratory rate 20, blood pressure 124/78 and pulse ox 93%. DISCHARGE INSTRUCTIONS: Discharge home today. Return to see Dr. Deng in 5-7 dyas. Resume home medications as per list provided by nursing staff. MEDICATIONS AT DISCHARGE: Valium 5mg PO bedtime Lanoxin 125mcg PO daily Ferrous Sulfate 324mg PO daily Lasix Tab 20mg PO 0630 Synthroid 100mcg PO 0630 Midodrine 5mg PO twice a day Micro-K cap 10 meq Po daily Xarelto 15mg PO QPM Zocor 20mg PO bedtime Flomax 0.4mg PO daily Ultram 50mg PO Q 8 hours. ALLERGIES: Lisinopril Olmesartan NEW PRESCRIPTIONS: Keflex 500mg take one tablet by mouth twice daily for seven days Prednisone 10mg take one tablet by mouth daily for 7 days. DIET INSTRUCTIONS: Regular diet as tolerated. Stay well hydrated. ACTIVITY: Get plenty of rest at home. Gradually increase activity level according to toleration. SMOKING: Non-smoker DISEASE SPECIFIC EDUCATION: Bronchitis Home medications New Prescriptions Activity Followup HOSPITAL COURSE: The patient is an 86 year old white male hospitalized with acute bronchitis/ pneumonitis. The patient was treated with IV antibiotics, Rocephin and Zithromax. He was given IV steroids, NEBS treatment and Oxygen. The patient has audible wheezing bilaterally without out stethoscope. On admission he looked extremely pale and hypertension. His appetite was very poor prior to hospitalization. The patient in the hospital improved remarkably within 24 hours. His wheezing practically subsided and he had very fernanda mild expiratory wheeze at the time of discharge with no distress at all. His atrial fibrillation had rapid ventricular response during the stay in the hospital with breathing treatment and also with dehydration. The patient's kidney functions improved and his hydration status improved. His atrial fibrillation had acceptable ventricular response at the time of discharge with no evidence of any congestive heart failure, Bronchitis symptoms had practically resolved. He was put on antibiotic and steroids as outpatient. At the time of discharge the patient's condition was stable with stable cardiopulmonary status. The patient had an echocardiogram done which showed practically akinetic to hypokinetic septum with good LV posterior wall motion with ejection fraction close to normal. LV size was normal. It is noted that patient had coronary bypass surgery and he has long history of near syncopal episode from postural hypotension. The patient runs relatively more systolic blood pressure. LABS: Hgb 10.8, hct 32, WBC 10,000 normal differential, creatinine 1.2, BUN 28 and potassium 4.4. CONDITION: Stable. TIME SPENT: More than 60 minutes. MTDD
--- NOTE | 2016-06-11 09:09 | PN ---
06/03/16: Level 5 06/04/16: Intermediate 06/05/16: Intermediate 06/06/16: D as in discharge. MTDD
== END 2016-06-06 11:40 | disposition home or self-care (01) | DRG 203 ==
LOC: MEDSURG B 15:50
PROVIDERS: ADMIT Internal Medicine; ATTEND Internal Medicine
DX: J20.9 Acute bronchitis, unspecified (principal); J42 Unspecified chronic bronchitis; I48.91 Unspecified atrial fibrillation; R07.81 Pleurodynia; I12.9 Hypertensive chronic kidney disease with stage 1 through stage 4 chronic kidney disease, or unspecified chronic kidney disease; R94.39 Abnormal result of other cardiovascular function study; R79.89 Other specified abnormal findings of blood chemistry; E86.0 Dehydration; I10 Essential (primary) hypertension; I73.9 Peripheral vascular disease, unspecified; N18.3 Chronic kidney disease, stage 3 (moderate); M16.11 Unilateral primary osteoarthritis, right hip; M54.30 Sciatica, unspecified side; I25.2 Old myocardial infarction; R73.9 Hyperglycemia, unspecified; Z95.1 Presence of aortocoronary bypass graft; Z79.01 Long term (current) use of anticoagulants; Z86.79 Personal history of other diseases of the circulatory system; Z79.899 Other long term (current) drug therapy
CPT/HCPCS: 36415; 80053; 80162; 81001; 82550; 82553; 83874; 84484; 85025; 87070; 93005; 93010; 94640

== ENCOUNTER 2018-12-13 12:30 | Inpatient (IN) ==
[2018-12-13 13:23] VITALS: BMI 26.0
[2018-12-13] MEDS ORDERED: LASIX IVP STA (13:29)
[2018-12-13] MEDS ORDERED: VISTARIL INJ IM PRN (14:23)
[2018-12-13] MEDS ORDERED: NITROSTAT SL PRN (14:23)
[2018-12-13] MEDS ORDERED: TYLENOL PO PRN (14:23)
[2018-12-13] MEDS ORDERED: ATROPINE SULFATE PFS IVP PRN (14:23)
[2018-12-13] MEDS ORDERED: ACETAMINOPHEN PO PRN (14:37)
[2018-12-13] MEDS ORDERED: [UNRECOGNIZED DRUG - OTHER] PO PRN (14:37)
[2018-12-13] MEDS ORDERED: VALIUM PO PRN (14:37)
[2018-12-13] MEDS ORDERED: TRAMADOL HCL PO PRN (14:37)
--- NOTE | 2018-12-13 15:42 | DI ---
Exam: Single view of the chest. Comparison: 12/01/2018. Reason for exam: Short of breath. FINDINGS: No pneumothorax, pleural effusion, or focal consolidation. Patchy ground-glass is seen in the bases. Operative changes are seen after midline sternotomy and CABG. Impression: No pneumothorax, pleural effusion, or focal airspace with mild pulmonary vascular congestion/pneumoni tis.
[2018-12-13] MEDS: COLACE PO SCH (20:51)
[2018-12-13] MEDS: MIDODRINE PO SCH (20:56)
[2018-12-14] MEDS: SYNTHROID PO SCH (05:45)
[2018-12-14] MEDS: LASIX IVP SCH (05:45)
[2018-12-14] MEDS ORDERED: ASPIRIN EC PO SCH (08:00)
[2018-12-14] MEDS: COLACE PO SCH ×2 (08:37→20:38)
[2018-12-14] MEDS: FLOMAX PO SCH (08:37)
[2018-12-14] MEDS: MICRO-K CAP PO SCH (08:37)
[2018-12-14] MEDS: FERROUS SULFATE PO SCH (08:37)
[2018-12-14] MEDS: XARELTO PO SCH (08:38)
[2018-12-14] MEDS: MIDODRINE PO SCH ×2 (08:41→20:37)
--- NOTE | 2018-12-14 08:53 | PCM.PROG ---
"Attending Provider: ATTENDING PROVIDER: Dr. PASHA LEWIS This patient is seen with Jami Kam, Nurse Practitioner. DATE OF SERVICE: 12/14/18 SUBJECTIVE: This 88 year old WHITE/ M was hospitalized 12/13/18. The patient is resting comfortably. He is still short of breath and still with leg edema. Dr. Lewis performed echocardiogram this morning. He has had good urine output. REVIEW OF SYSTEMS: CONSTITUTIONAL: Weakness. No night sweats. No fatigue, malaise, lethargy. No fever or chills. HEENT: Eyes: No visual changes. No eye pain. No eye discharge. ENT: No runny nose. No epistaxis. No sinus pain. No odynophagia. No congestion. RESPIRATORY: No cough, no congestion. No hemoptysis. Shortness of breath. CARDIOVASCULAR: No angina symptoms. No CHF symptoms. No atypical chest pain for CAD. No palpitations. No orthopnea.. GASTROINTESTINAL: Positive for leg edema. No abdominal pain. No nausea or vomiting. No diarrhea or constipation. No hematemesis. No hematochezia. GENITOURINARY: No urgency. No frequency. No dysuria. No hematuria. No obstructive symptoms. No discharge. No pain. No significant abnormal bleeding. MUSCULOSKELETAL: No musculoskeletal pain; no joint swelling. NEUROLOGICAL: Awake, alert, oriented to time, place and person. No headache. No neck pain. No syncope. No seizures. No dizziness. PSYCHIATRIC: Not anxious. No depression. No suicidal thoughts. No homicidal thoughts. SKIN: No rash. No lesions. No wounds. ENDOCRINE: No unexplained weight loss. No weight gain. HEMATOLOGIC/LYMPHATIC: No anemia. No purpura. No petechiae. No prolonged or excessive bleeding. No palpable lymph nodes. PHYSICAL EXAMINATION: GENERAL: The patient is awake, alert and oriented, lying/sitting in bed in no distress. VITAL SIGNS: Temperature 98.2 F, Pulse 80, Respiratory Rate 16, BP 113/74, Pulse Ox 95% HEENT: Head normocephalic, atraumatic. Eyes: Extraocular muscles are intact. Pupils are equal, round and reactive to light and accommodation. Ears: No lesions. Nose appeared normal. Throat: No exudate or erythema. NECK: Supple. No JVD, no carotid bruit. No lymphadenopathy or thyromegaly. LUNGS: Clear to auscultation. Percussion note normal. Chest symmetrical. HEART: Irregular heart beat consistent with atrial fibrillation. S1, S2, no S3. No murmurs. No cyanosis or clubbing. No ascites. Pulses: Dorsalis pedis and posterior tibial pulses +1 to +2 both sides. ABDOMEN: Soft. Non-tender. Bowel sounds active. No CVA tenderness. No mass felt. EXTREMITIES: |+ right lower extremity, +2 left lower extremity edema. Full range of motion of all extremities, equal. NEUROLOGIC: No focal deficit. Cranial nerves II through XII are grossly intact. No headache, no double vision or headache. SKIN: Not dry. Intact. Turgor-normal. LYMPHATIC: No palpable lymph nodes/no lymphedema. MUSCULOSKELETAL: Normal joints with no swelling. Muscle tone is normal. LAB REVIEW: 12/14/18 05:04 12/14/18 05:04 12/14/18 05:04: Sodium 138.0, Potassium 3.91, Chloride 98.7, Carbon Dioxide 34.3 H, Anion Gap 8.91, BUN 18.1, Creatinine 1.28 H, Estimated GFR (MDRD) 53.00 , BUN/Creatinine Ratio 14.14, Glucose 93.2, Calcium 8.64, Total Bilirubin 0.66, AST 22.5, ALT 9.5, Alkaline Phosphatase 57.9, Total Protein 6.30, Albumin 3.39 L , Globulin 2.91, Albumin/Globulin Ratio 1.16 12/14/18 05:04: WBC 4.96, RBC 3.40 L, Hgb 10.6 L, Hct 33.3 L, MCV 97.9 H, MCH 31.2 H, MCHC 31.8, RDW Coeff of Lloyd 12.1, Plt Count 184, Immature Gran % (Auto) 0.2, Neut % (Auto) 63.2, Lymph % (Auto) 20.2, [place] % (Auto) 9.1, Eos % (Auto) 6.7, Baso % (Auto) 0.6, Immature Gran # (Auto) 0.0, Neut # (Auto) 3.1, Lymph # ( Auto) 1.0, [place] # (Auto) 0.5, Eos # (Auto) 0.3, Baso # (Auto) 0.0 12/14/18 05:04: Digoxin 0.83 12/13/18 22:28: Total Creatine Kinase 39.4 L, Troponin I < 0.012 12/13/18 13:58: Sodium 137.7, Potassium 4.36, Chloride 99.5, Carbon Dioxide 35.0 H, Anion Gap 7.56, BUN 20.1 H, Creatinine 1.25 H, Estimated GFR (MDRD) 54.00, BUN/Creatinine Ratio 16.08, Glucose 90.2, Calcium 8.84, Total Bilirubin 0.57, AST 22.0, ALT 10.5, Alkaline Phosphatase 59.0, Total Creatine Kinase 43.4 L, Troponin I < 0.012, Total Protein 6.51, Albumin 3.44 L, Globulin 3.07, Albumin/Globulin Ratio 1.12 12/13/18 13:58: WBC 5.02, RBC 3.34 L, Hgb 10.5 L, Hct 33.0 L, MCV 98.8 H, MCH 31.4 H, MCHC 31.8, RDW Coeff of [place] 12.2, Plt Count 176, Immature Gran % (Auto) 0.4, Neut % (Auto) 59.7, Lymph % (Auto) 24.7, [place] % (Auto) 9.2, Eos % (Auto) 5.2, Baso % (Auto) 0.8, Immature Gran # (Auto) 0.0, Neut # (Auto) 3.0, Lymph # ( Auto) 1.2, [place] # (Auto) 0.5, Eos # (Auto) 0.3, Baso # (Auto) 0.0 12/13/18 13:58: Free T4 1.61 12/13/18 13:50: Urine Color Yellow, Urine Clarity Slightly, Urine pH 6.5, Ur Specific [place] 1.020, Urine Protein Trace, Urine Glucose (UA) Negative, Urine Ketones Negative, Urine Blood 3+, Urine Nitrite Negative, Urine Bilirubin Negative, Urine Urobilinogen 0.2, Ur Leukocyte Esterase 1+, Urine Microscopic RBC 20-30, Urine Microscopic WBC 5-10, Ur Squamous Epith Cells 2-5, Urine Bacteria Trace, Urine Yeast 1+ ASSESSMENT: Please see below. 1. Acute CHF. 2. Leg edema. 3. Left nephrolithiasis. 4. Shortness of breath. PLAN: 1. BNP. 2. Keep legs elevated. Plan and coordination of the patient's care discussed in the presence of Account Financial Manager and nurse. CONDITION: Stable SCRIBED BY: AIMEE COATES Projection Printer scribed while in presence of service performed by Dr. Lewis/Jami Kam APRN on 12/14/18 ([id number])"
[2018-12-14] MEDS ORDERED: NON-FORMULARY MEDICATION (Ferrous Sulfate [Iron] 325 MG) PO SCH (09:00)
[2018-12-14] MEDS ORDERED: NON-FORMULARY MEDICATION (Rivaroxaban [Xarelto] 15 MG) PO SCH (09:00)
--- NOTE | 2018-12-14 11:06 | RS.PTINEVL ---
Subjective - Patient information Date of Evaluation: 12/14/18 Date of Arrival on Unit: 12/13/18 Admitted From:: Home Diagnosis: acute CHF, LE edema, recent falls, balance impaired Usual Living Arrangement: Alone Living Arrangement Comments: lives alone, dtr comes 1-2 times a week to assist. pt has steps to enter home with a handrail. pt currently drives, is able to cook easy meals such as sandwiches and warming left overs. Home Environment: House, Stairs (few), Rail Medical History: Hypertension, CHF, Arthritis Medical History Comments:: afib, CKD stage 3, AAA, ataxia, hypothyroid, hemmorhoids, depression Surgical History: Cholecystectomy, CABG Surgical History Comments:: AAA repair, umbilical hernia repair Medications: see chart Subjective Information/ Patient Comments:: pt states that he feels weak all the time. 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, Drive Current Level of Function: Partially Dependent Current Equipment Used at Home: Rollator; Shower chair Interventions - Objective Patient Orientation: Person, Place, Time, Situation Current Interventions: IV's, Miguel Catheter Observation: pt with non pitting edema BLE Range of Motion - ROM Right Upper Extremity AROM: WFL's Left Upper Extremity AROM: WFL's Right Lower Extremity AROM: WFL's Left Lower Extremity AROM: WFL's Muscle Strength - Muscle Strength Right Upper Extremity Strength: Mild Weakness (grossly 4/5) Left Upper Extremity Strength: Mild Weakness (grossly 4/5) Right Lower Extremity Strength: Mild Weakness (hip flex 4-/5, knee flex/ext 4/5 , ankle DF/PF 4/5) Left Lower Extremity Strength: Mild Weakness (hip flex 4-/5, knee flex/ext 4/5, ankle DF/PF 4/5) Sensation - Sensation Right Upper Extremity Sensation: Intact/Normal Left Upper Extremity Sensation: Intact/Normal Right Lower Extremity Sensation: Intact/Normal Left Lower Extremity Sensation: Intact/Normal Palpation Palpation Findings: None/Normal Balance - Sitting Balance and Reactions Static Sitting Balance: Normal Dynamic Sitting Balance: Good - Standing Balance and Reactions Static Standing Balance: Fair Dynamic Standing Balance: Poor Standing Equilibrium Reactions: Delayed Left, Delayed Right Standing Protective Reactions: Delayed Left, Delayed Right Functional Mobility - Bed Mobility Rolling R/L: Independent Supine to Sit: Supervision - Transfers Sit to Stand: CGA Stand to Sit: CGA - Safety Awareness Safety Awareness: Good OSCAR INDEX SCORE: n/a Ambulation - Ambulation Assistive Device Used: Rollator Orthotic/Prosthetic Device: No Distance: 140ft Assistance needed with Ambulation: CGA Gait Deviations: Forward posture, Short stride, Deviates from path Ambulation Comments: pt requires cues for posture, step length as well as sequencing with rollator rwx. Factors Affecting Ambulation: Decreased Balance, Weakness, Decreased Safety, Limited Endurance Treatment time - Time with patient Length of Evaluation: 26 Total treatment time: 28 Patient Education - Education Patient Education: Activity Modification, Education of Plan of Care Teaching Recipient: Patient Teaching Methods: Discussion, Demonstration Comments: discussion regarding POC as well as safety with transfers and gait. Assessment - Assessment Problem List:: Decreased level of function, Requires training/education, Decreased safety/Risk of falls, Weakness Rehab Potential: Good Further Therapy Indicated?: Yes Candidate for Swing Bed for Therapy Services?: pt would need to be eval by OT and then discuss if appropriate for swing bed due to pt higher functional level. Evaluation Complexity: HISTORY: Medium, EXAM OF BODY SYSTEMS: Medium, CLINICAL PRESENTATION: Medium, CLINICAL DECISION MAKING: Medium Short Term Goals GOAL #1: pt demonstrate independence with bed mobility Goal to be met by: 12/16/18 GOAL #2: Transfer sup to/from sit independently Goal to be met by: 12/16/18 GOAL #3: Sit to/from stand SBA Goal to be met by: 12/16/18 GOAL #4: pt amb with rollator rwx 150ft with CGA improved posture Goal to be met by: 12/16/18 Detention Goals GOAL #1: Sit to/from stand independently Goal to be met by: 12/20/18 GOAL #2: pt amb functional household distances SBA with AAD Goal to be met by: 12/20/18 GOAL #3: Ascend/descend 3 steps with HR SBA Goal to be met by: 12/20/18 Plan Plan of Care: Therapeutic EX, Therapeutic Activity Other:: gait training Frequency of Treatment: 1-2 X day, as tolerated Duration of Treatment: 5-6 days Anticipated Discharge Destination: Home Treatment Diagnosis (ICD 10 Codes): balance impairement R26.81. gait difficulty R 26.2. muscle weakness M62.81 Has the Physician been added for Co-signature?: Yes
--- NOTE | 2018-12-14 11:53 | HP ---
DATE OF SERVICE: 12/13/18 CHIEF COMPLAINT" Leg edema. HISTORY OF PRESENT ILLNESS: This is a 88-year-old male who on Thursday, six days ago had rectal bleed and went to [place] [facility]. He had a CT scan of abdomen which showed kidney stone. He went to [place] and had stent on left side with Alcantar. He was supposed to stone busted with surgery next day and urologist canceled the surgery. Next appointment is on 01/08/19. Complaint of leg swelling. PAST MEDICAL HISTORY: Ataxia Leg edema Left kidney stone CKD3 Anemia Dyslipidemia PAD Hypothyroidism Renal artery stenosis PAST SURGICAL HISTORY: CABGs 1988 GB Hernia repair Aortic aneurysm repair Vascular times two Colonoscopy 06/08 [place], [place] REVIEW OF SYSTEMS: CONSTITUTIONAL: No fever, no fatigue. HEENT: No sinus drainage, no sore throat. RESPIRATORY: No cough, no congestion. CARDIOVASCULAR: Positive for leg edema. Atypical chest pain for coronary artery disease. Shortness of breath with exertion. No angina, CHF symptoms, palpitations. GASTROINTESTINAL: Rectal bleed times two days. No abdominal pain. No GERD. GENITOURINARY: No hematuria, no prostatism, no polyuria. MATCHER OPERATOR: No blackout, no dizziness, no headache, no double vision. MUSCULOSKELETAL: No osteoarthritis pain, no joint swelling. ENDOCRINE: No weight loss, no weight gain. SKIN: Not dry, no rash. PSYCHIATRIC: Not anxious, no depression, no suicidal thoughts, no homicidal thoughts. SOCIAL HISTORY: . Nonsmoker. No alcohol use. Retired. Three children. No ilicit drug use. FAMILY HISTORY: Father is . Mother is . MEDICATIONS: (HOME) Tramadol - Acetaminophen 37.5-325 mg p.o. every 8 hours p.r.n. Levothyroxine 100 mcg p.o. once daily Furosemide 10 mg one p.o. once daily Simvastatin 20 mg one p.o. once daily in the evening (hold) Potassium chloride 10 mEq p.o. once daily Flomax 0.4 mg capsule, extended release 24 hour Diazepam 5 mg one p.o. times one day p.r.n. Midodrine 5 mg one p.o. two times per day Iron one time per day Lanoxin 125 mcg one tablet p.o. four times per week M, W, F, Sat Xarelto 15 mg one tablet p.o. one time per day Docusate Sodium b.i.d. 100 mg ALLERGIES: NKDA PHYSICAL EXAMINATION: V/S: Pulse 104, BP 84/54, 02 sat 94%. 02 sat 94%. Weight 213.6 lbs, height 6'0" . BMI 28.9. Pallor positive. GENERAL APPEARANCE: Oriented times three. HEENT: Normal. NECK: No JVP, no bruits. RESPIRATORY: Lungs are clear. CARDIOVASCULAR: S1, S2, no S3, no murmurs. No cyanosis, clubbing. No ascites. GI/ABDOMEN: No tenderness. Bowel sounds are active. EXTREMITIES: +3 pitting edema, pulses +1, equal. MATCHER OPERATOR: Deep tendon reflexes, sensory, motor and gait all normal. RECTAL/PROSTATE: Prostate 04/02 (2.1). Colonoscopy and EGD 05/08 Dr. Moise. LABS: Free T4 1.6, sodium 137, potassium 4.3, BUN 20, creatinine 1.25, AST 22, ALT 10 , white count 5.0, hemoglobin 10.5, hematocrit 33.3, platelets 176. Urine shows 3+ blood, 1+ leuks. Chest x-ray shows no pneumothorax or with mild pulmonary vascular congestion/pneumonitis. ASSESSMENT: 1. LEG EDEMA, +3 PITTING EDEMA/SHORTNESS OF BREATH 2. LEFT KIDNEY STONE WITH STENT AND ALCANTAR CATHETER/CYSTOURETHROSCOPY WITH INSERTION OF DOUBLE J URETERAL STENT BY MYRA CONTRERAS M.D. 3. HISTORY OF EXTERNAL HEMORRHOID WITH BLEEDING 4. HISTORY OF RECTAL BLEED 5. RIGHT HIP SCIATICA PAIN 6. OSTEOARTHRITIS RIGHT HIP 7. ATAXIA 8. HYPOTENSION 9. HISTORY OF ATRIAL FIBRILLATION ON XARELTO 10. DYSLIPIDEMIA 11. ANEMIA 12. CKD-3 13. PERIPHERAL ARTERIAL DISEASE 14. ABDOMINAL WALL HERNIA 15. CABGs 1988 16. AORTIC ANEURYSM - DR. MONTGOMERY 1987 17. BASAL CELL EAR 18. HYPOTHYROIDISM 19. OSTEOARTHRITIS KNEES - DR. PAGAN 20. FUNGAL INFECTION 21. BASAL CELL RIGHT EAR, DR. ROBINS 22. HISTORY OF RENAL ARTERY STENOSIS PLAN: 1. Admit with routine telemetry orders. 2. Elevate legs. 3. Lasix 20 mg IV now and q.a.m. 4. Lanoxin level a.m. 5. T4 and TSH. 6. Continue all medications. 7. Hold Simvastatin. 8. Weigh daily. 9. Three step oxygen test. 10. Oxygen 2L/cannula. 11. Get records from [facility] for hospital stay to 12/02/18. 12. The patient took Levaquin 500 mg p.o one daily times five days. TIME SPENT: More than 70 minutes. MTDD
[2018-12-15] MEDS: SYNTHROID PO SCH (05:45)
[2018-12-15] MEDS: LASIX IVP SCH (05:45)
[2018-12-15] MEDS ORDERED: TORADOL IVP STA (08:46)
[2018-12-15] MEDS: FLOMAX PO SCH (08:51)
[2018-12-15] MEDS: COLACE PO SCH ×2 (08:51→20:16)
[2018-12-15] MEDS: MICRO-K CAP PO SCH (08:51)
[2018-12-15] MEDS: LANOXIN PO SCH (08:52)
[2018-12-15] MEDS: FERROUS SULFATE PO SCH (08:53)
[2018-12-15] MEDS: XARELTO PO SCH (08:54)
--- NOTE | 2018-12-15 09:04 | PCM.PROG ---
Attending Provider: ATTENDING PROVIDER: Dr. PASHA LEWIS DATE OF SERVICE: 12/15/18 SUBJECTIVE: This 88 year old WHITE/ M was hospitalized 12/13/18 with leg edema, shortness of breath and CHF type symptoms. The patient has history of of left ureteric stone with stent put in by Jovany Quiroz M.D. at [place]. The patient ended up in the office with complaint of being short of breath and leg edema. Condition has improved. REVIEW OF SYSTEMS: CONSTITUTIONAL: No night sweats. No fatigue, malaise, lethargy. No fever or chills. HEENT: Eyes: No visual changes. No eye pain. No eye discharge. ENT: No runny nose. No epistaxis. No sinus pain. No odynophagia. No congestion. RESPIRATORY: No cough, no congestion. No hemoptysis. Mild shortness of breath but is better. CARDIOVASCULAR: No angina symptoms. No CHF symptoms. No atypical chest pain for CAD. No palpitations. No orthopnea.. GASTROINTESTINAL: No abdominal pain. No nausea or vomiting. No diarrhea or constipation. No hematemesis. No hematochezia. GENITOURINARY: No urgency. No frequency. No dysuria. No hematuria. No obstructive symptoms. No discharge. No pain. No significant abnormal bleeding. MUSCULOSKELETAL: No musculoskeletal pain; no joint swelling. NEUROLOGICAL: Awake, alert, oriented to time, place and person. No headache. No neck pain. No syncope. No seizures. No dizziness. PSYCHIATRIC: Not anxious. No depression. No suicidal thoughts. No homicidal thoughts. SKIN: No rash. No lesions. No wounds. ENDOCRINE: No unexplained weight loss. No weight gain. HEMATOLOGIC/LYMPHATIC: No anemia. No purpura. No petechiae. No prolonged or excessive bleeding. No palpable lymph nodes. PHYSICAL EXAMINATION: GENERAL: The patient is awake, alert and oriented, lying/sitting in bed in no distress. VITAL SIGNS: Temperature 98.1 F, Pulse 95, Respiratory Rate 17, BP 91/63, Pulse Ox 96% HEENT: Head normocephalic, atraumatic. Eyes: Extraocular muscles are intact. Pupils are equal, round and reactive to light and accommodation. Ears: No lesions. Nose appeared normal. Throat: No exudate or erythema. NECK: Supple. No JVD, no carotid bruit. No lymphadenopathy or thyromegaly. LUNGS: Decreased breath sounds. Clear to auscultation. Percussion note normal. Chest symmetrical. HEART: S1, S2, no S3. No murmurs. No cyanosis or clubbing. No ascites. Pulses: Dorsalis pedis and posterior tibial pulses +1 to +2 both sides. ABDOMEN: Soft. Non-tender. Bowel sounds active. No CVA tenderness. No mass felt. EXTREMITIES: +1 pitting edema. Full range of motion of all extremities, equal. NEUROLOGIC: No focal deficit. Cranial nerves II through XII are grossly intact. No headache, no double vision or headache. SKIN: Warm and dry. Intact. Turgor-normal. LYMPHATIC: No palpable lymph nodes/no lymphedema. MUSCULOSKELETAL: Normal joints with no swelling. Muscle tone is normal. LAB REVIEW: 12/15/18 04:54 12/15/18 04:54 12/15/18 04:54: Sodium 137.5, Potassium 4.13, Chloride 99.2, Carbon Dioxide 35.4 H, Anion Gap 7.03, BUN 19.6, Creatinine 1.43 H, Estimated GFR (MDRD) 47.00 , BUN/Creatinine Ratio 13.70, Glucose 100.8, Calcium 8.47, Total Bilirubin 0.50 , AST 21.2, ALT 9.1, Alkaline Phosphatase 58.9, Total Protein 6.21 L, Albumin 3.27 L, Globulin 2.94, Albumin/Globulin Ratio 1.11 12/15/18 04:54: WBC 5.81, RBC 3.31 L, Hgb 10.3 L, Hct 32.3 L, MCV 97.6 H, MCH 31.1 H, MCHC 31.9, RDW Coeff of Lloyd 12.2, Plt Count 187, Immature Gran % (Auto) 0.3, Neut % (Auto) 59.6, Lymph % (Auto) 22.5, [place] % (Auto) 10.2 H, Eos % (Auto ) 6.9, Baso % (Auto) 0.5, Immature Gran # (Auto) 0.0, Neut # (Auto) 3.5, Lymph # (Auto) 1.3, [place] # (Auto) 0.6, Eos # (Auto) 0.4, Baso # (Auto) 0.0 12/14/18 05:04: NT-Pro-B Natriuret Pep 1770.000 H ASSESSMENT: Please see below. 1. CHF seems under control. 2. Atrial fibrillation, has somewhat rapid ventricular response on upper side of normal but difficult to add medication because of systolic blood pressure 90 to 100. Lanoxin level is practically normal; do not want to push Lanoxin orally because of abnormal kidney function and age. PLAN: 1. The patient continues to get Lasix 20 mg. 2. Leg elevation. 3. PT. 4. We are in touch with urologist in [place]. Indwellng Miguel catheter stays and will try to get note from urologist for reason of postponing procedure. 5. Change diet to regular diet. 6. Toradol 30 mg IV one dose now. Plan and coordination of the patient's care discussed in the presence of Submarine Diver and nurse. CONDITION: Stable SCRIBED BY: AIMEE COATES Geospatial Technologist scribed while in presence of service performed by Dr. PASHA LEWIS on 12/15/18 ([id number])
--- NOTE | 2018-12-15 09:21 | ECHO2D ---
Date of Exam: 12/14/18 Ordering Physician: DR. PASHA LEWIS Room #: 116 Reason for Echo: CABG, CHF M-Mode Normal Adult Results LV Dimensions Normal Adult Results AoV Opening excursions >1.6 >1.6 LVEDD-base- 3.5-5.8 4.4 Ao root dimensions 2.0-3.7 4.3 LVESD-base- 3.1-4.6 L. Atrium dimensions 1.9-3.8 5.3 Post. Wall thickness 0.8-1.1 1.1 IV septum (thickness) 0.7-1.2 1.1 Post. Wall excursion 0.72-1.3 NORMAL Septal motion 0.4 Systolic motion R. Ventricular cavity 1.5-2.0 NORMAL LVEF 60% 40 -45% Paradoxical septal wall motion NORMAL 2-D : 2-D M Mode Echocardiogram was performed using apical four chamber and left parasternal long and short axis views. Mitral, tricuspid and aortic valves appear to be normal. Contractility of the left ventricle seems to be normal, so is the cavity size. DILATED LEFT ATRIAL CAVITY AND AORTIC ROOT. HYPOKINETIC SEPTAL WALL. There is no pericardial effusion. There is no thrombus noted in the left ventricular or left aortic cavity. No mitral valve prolapse noted. M-MODE: MV: NORMAL AV: NORMAL TV: NORMAL PV: CHAMBER SIZE: DILATED LEFT AORTIC ROOT AND ENLARGED LEFT ATRIAL CAVITY WALL MOTION: HYPOKINETIC SEPTAL WALL PERICARDIUM: NORMAL INTERPRETATION: 1. BORDERLINE LEFT VENTRICULAR HYPERTROPHY 2. HYPOKINETIC SEPTAL WALL--EJECTION FRACTION 40 TO 45% 3. DILATED AORTIC ROOT MTDD
[2018-12-15] MEDS: MIDODRINE PO SCH ×2 (10:08→20:17)
[2018-12-15] MEDS ORDERED: DULCOLAX RC STA (10:53)
[2018-12-15] MEDS ORDERED: DULCOLAX RC ONE (13:02)
--- NOTE | 2018-12-15 13:09 | RS.OTINEVL ---
Subjective - Patient information Date of Evaluation: 12/15/18 Date of Arrival on Unit: 12/14/18 Diagnosis: Afib, left kidney stone, Pitting edema PRECAUTIONS: At risk for falls Usual Living Arrangement: Alone Living Arrangement Comments: Pt lives at home alone. He uses a rollator to walk. He will get out in the yard without any AE and has had falls. Pt has a daughter that is 8 minutes away from him. She comes over 2X a week. He still drives. He has someone mow his yard. Home Environment: House, Stairs (many) Medical History Comments:: left kidney stone, Atrial fib., Leg edema, SOB with exertion, negron catheter Surgical History Comments:: Vascular surgery in left arm, Subjective Information/ Patient Comments:: "I am going to have my eyelid surgery soon. 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 Pt uses a rollator walker. Pt drives himself and shops for himself. Current Level of Function: Partially Dependent Current Equipment Used at Home: Rollator; Shower chair Pain Assessment - Pain Pain Score: 4 Side: left Pain Location Body Site: Knee Pain Aggravating Factors: Changing Position, Exercise/Activity, Sitting, Walking Pain Alleviating Factors: Medication, Sitting Interventions - Objective Patient Orientation: Person, Place, Time, Situation Current Interventions: IV's, Telemetry Observation: Pt is weak and SOA with activity. Pt would benefit from Skilled occupational Therapy. Interventions - ROM Right Upper Extremity AROM: Slight limitation Left Upper Extremity AROM: Slight limitation - Strength Right Upper Extremity Strength: Mild Weakness Left Upper Extremity Strength: Mild Weakness - Sensation Right Upper Extremity Sensation: Intact/Normal Left Upper Extremity Sensation: Intact/Normal Balance - Sitting Balance Static Sitting Balance: Fair Dynamic Sitting Balance: Fair - Standing Balance Static Standing Balance: Poor Dynamic Standing Balance: Poor ADL Skills - Self Feeding Self Feeding: Independent - Grooming Grooming: Independent - Bathing Bathing UE: Independent Bathing LE: CGA - Dressing Dressing UE: Independent Dressing LE: CGA - Toilet Management Toileting Management: CGA Functional Mobility - Bed Mobility Rolling R/L: Independent Scooting: Independent Supine to Sit: Independent Sit to Supine: Independent Comments:: Pt becomes SOA with activity. - Transfers Sit to Stand: CGA Stand to Sit: CGA Stand Pivot Transfers: CGA - Ambulation Weight Bearing Status: FWB Assistance needed with Ambulation: CGA, 1 person assist Comments:: Pt using a Rollator walker at this time. - Safety Awareness Safety Awareness: Fair OSCAR INDEX SCORE: . Additional Treatment Performed - Additional units charged ADL: 15 - Time with patient Length of Evaluation: 20 Total treatment time: 35 Activities Would you be interested in leaving your room for activities?: Yes Would you enjoy group activities?: Yes Do you have difficulty with your vision?: Yes Patient Interests:: Reading Books/Magazines, Watching Television, Visiting/ Socializing Patient Education Patient Education: Education of diagnosis, Body/Joint mechanics, Home Exercise Program, Home Safety, Education of Plan of Care Teaching Recipient: Patient Teaching Methods: Teach Back Method Used, Discussion Comments: Demonstrated sitting down on the transfer bath bench. Assessment Problem List:: Decreased level of function, Requires training/education, Decreased safety/Risk of falls, Weakness, Pain limits previous level of function Rehab Potential: Good Further Therapy Indicated?: Yes Evaluation Complexity: HISTORY: Medium, EXAM OF BODY SYSTEMS: Medium, CLINICAL DECISION MAKING: Medium Short Term Goals - Goals GOAL 1: Pt to increase strength to 4+/5. Goal to be met by: 12/20/18 GOAL 2: Pt to complete toilet transfers SUP. Goal to be met by: 12/20/18 GOAL 3: Pt to increase activity tolerance to 15 minutes. Goal to be met by: 12/20/18 Patient Navigator Goals GOAL 1: Pt to increase strength to 5/5. Goal to be met by: 12/21/18 GOAL 2: Pt to complete toilet transfers Mod-I. Goal to be met by: 12/21/18 GOAL 3: Pt to increase activity tolerance to 15 minutes. Goal to be met by: 12/21/18 Plan Plan of Care: Therapeutic EX, Neuromuscular Re-Educ, Therapeutic Activity, Self- Care/Home Management Frequency of Treatment: 1-2 X day, as tolerated Duration of Treatment: 2 Weeks Anticipated Discharge Destination: Home Treatment Diagnosis (ICD 10 Codes): M62.81 muscle weakness, Z74.1 Need for assistance with personal care Has the Physician been added for Co-signature?: Yes
[2018-12-16] MEDS: SYNTHROID PO SCH (05:41)
[2018-12-16] MEDS: LASIX IVP SCH (05:42)
--- NOTE | 2018-12-16 06:16 | ECHO2D ---
Date of Exam: [] Ordering Physician: [] Room #: [] Reason for Echo: [] Auscultation: [] Murmurs: [] M-Mode Normal Adult Results LV Dimensions Normal Adult Results AoV Opening excursions >1.6 [] LVEDD-base- 3.5-5.8 [] Ao root dimensions 2.0-3.7 [] LVESD-base- 3.1-4.6 [] L. Atrium dimensions 1.9-3.8 [] Post. Wall thickness 0.8-1.1 [] IV septum (thickness) 0.7-1.2 [] Post. Wall excursion 0.72-1.3 [] Septal motion [] Systolic motion R. Ventricular cavity 1.5-2.0 [] LVEF 60% [] Paradoxical septal wall motion [] 2-D : [] M-MODE: MV: [] AV: [] TV: [] PV: [] CHAMBER SIZE: [] WALL MOTION: [] PERICARDIUM: [] INTERPRETATION: 1. [] 2. [] 3. [] 4. [] MTDD
[2018-12-16] MEDS ORDERED: TORADOL IVP STA ×2 (09:12→13:21)
[2018-12-16] MEDS: COLACE PO SCH ×2 (09:25→21:11)
[2018-12-16] MEDS: MICRO-K CAP PO SCH (09:25)
[2018-12-16] MEDS: FERROUS SULFATE PO SCH (09:25)
[2018-12-16] MEDS: XARELTO PO SCH (09:26)
[2018-12-16] MEDS: FLOMAX PO SCH (09:30)
[2018-12-16] MEDS: MIDODRINE PO SCH ×2 (09:33→21:11)
--- NOTE | 2018-12-16 11:01 | PCM.PROG ---
Attending Provider: ATTENDING PROVIDER: Dr. PASHA LEWIS DATE OF SERVICE: 12/16/18 SUBJECTIVE: This 88 year old WHITE/ M was hospitalized 12/13/18 with leg edema, early CHF type symptoms. The patient had just undergone left ureteric procedure with stent. He is to have catheter up to January 06, 2019 when he is going to have lithotripsy done. He has had two bowel movements. REVIEW OF SYSTEMS: CONSTITUTIONAL: No night sweats. No fatigue, malaise, lethargy. No fever or chills. HEENT: Eyes: No visual changes. No eye pain. No eye discharge. ENT: No runny nose. No epistaxis. No sinus pain. No odynophagia. No congestion. RESPIRATORY: No cough, no congestion. No hemoptysis. No shortness of breath. CARDIOVASCULAR: No angina symptoms. No CHF symptoms. No atypical chest pain for CAD. No palpitations. No orthopnea.. GASTROINTESTINAL: Appetite is good. No abdominal pain. No nausea or vomiting. No diarrhea or constipation. No hematemesis. No hematochezia. GENITOURINARY: Miguel catheter in place. No urgency. No frequency. No dysuria. No hematuria. No obstructive symptoms. No discharge. No pain. No significant abnormal bleeding. MUSCULOSKELETAL: No musculoskeletal pain; no joint swelling. NEUROLOGICAL: Awake, alert, oriented to time, place and person. No headache. No neck pain. No syncope. No seizures. No dizziness. PSYCHIATRIC: Not anxious. No depression. No suicidal thoughts. No homicidal thoughts. SKIN: No rash. No lesions. No wounds. ENDOCRINE: No unexplained weight loss. No weight gain. HEMATOLOGIC/LYMPHATIC: No anemia. No purpura. No petechiae. No prolonged or excessive bleeding. No palpable lymph nodes. PHYSICAL EXAMINATION: GENERAL: The patient is awake, alert and oriented, lying/sitting in bed in no distress. VITAL SIGNS: Temperature 98.6 F, Pulse 85, Respiratory Rate 18, BP 113/67, Pulse Ox 99% HEENT: Head normocephalic, atraumatic. Eyes: Extraocular muscles are intact. Pupils are equal, round and reactive to light and accommodation. Ears: No lesions. Nose appeared normal. Throat: No exudate or erythema. NECK: Supple. No JVD, no carotid bruit. No lymphadenopathy or thyromegaly. LUNGS: Clear to auscultation. Percussion note normal. Chest symmetrical. HEART: S1, S2, no S3. No murmurs. No cyanosis or clubbing. No ascites. Pulses: Dorsalis pedis and posterior tibial pulses +1 to +2 both sides. ABDOMEN: Soft. Non-tender. Bowel sounds active. No CVA tenderness. No mass felt. EXTREMITIES: Trace edema. Full range of motion of all extremities, equal. NEUROLOGIC: No focal deficit. Cranial nerves II through XII are grossly intact. No headache, no double vision or headache. SKIN: Warm and dry. Intact. Turgor-normal. LYMPHATIC: No palpable lymph nodes/no lymphedema. MUSCULOSKELETAL: Normal joints with no swelling. Muscle tone is normal. LAB REVIEW: 12/16/18 05:51 12/16/18 05:51 12/16/18 05:51: Sodium 138.7, Potassium 4.22, Chloride 99.0, Carbon Dioxide 35.8 H, Anion Gap 8.12, BUN 26.5 H, Creatinine 1.69 H, Estimated GFR (MDRD) 38.00, BUN/Creatinine Ratio 15.68, Glucose 110.7 H, Calcium 8.55, Total Bilirubin 0.45, AST 23.5, ALT 9.4, Alkaline Phosphatase 57.8, Total Protein 6.60 , Albumin 3.52, Globulin 3.08, Albumin/Globulin Ratio 1.14 12/16/18 05:51: WBC 5.30, RBC 3.44 L, Hgb 10.6 L, Hct 34.1 L, MCV 99.1 H, MCH 30.8, MCHC 31.1 L, RDW Coeff of Lloyd 12.2, Plt Count 206, Immature Gran % (Auto) 0.2, Neut % (Auto) 60.9, Lymph % (Auto) 22.3, [place] % (Auto) 10.4 H, Eos % (Auto ) 5.8, Baso % (Auto) 0.4, Immature Gran # (Auto) 0.0, Neut # (Auto) 3.2, Lymph # (Auto) 1.2, [place] # (Auto) 0.6, Eos # (Auto) 0.3, Baso # (Auto) 0.0 ASSESSMENT: Please see below. 1. CHF seems to be under control. 2. Kidney function abnormal but is stable. 3. Mild anemia noted. PLAN: 1. Continue IV Lasix. 2. Miguel catheter to be continued. 3. Toradol 30 mg IV now. 4. Will do chest x-ray. Plan and coordination of the patient's care discussed in the presence of Supervisor Hydrochloric Area and nurse. CONDITION: Stable SCRIBED BY: AIMEE COATES Analysis Evaluator scribed while in presence of service performed by Dr. PASHA LEWIS on 12/16/18 ([id number])
--- NOTE | 2018-12-16 13:35 | DI ---
Exam: Two views of the chest. Comparison: Chest x-ray performed 12/13/2018. Reason for exam: Short of air. FINDINGS: No pneumothorax, pleural effusion, or focal consolidation. Operative changes are seen aft er midline sternotomy. Parenchymal changes are seen suggesting chronic lung disease. Calcifications are seen overlying the left hemithorax not significantly changed from previous imaging. Impression: No acute cardiopulmonary process.
[2018-12-17 05:08] VITALS: BP 96/58; TEMP 97.9
[2018-12-17] MEDS: SYNTHROID PO SCH (06:08)
[2018-12-17] MEDS: LASIX IVP SCH (06:08)
[2018-12-17] MEDS: XARELTO PO SCH (08:42)
[2018-12-17] MEDS: MICRO-K CAP PO SCH (08:45)
[2018-12-17] MEDS: MIDODRINE PO SCH (08:45)
[2018-12-17] MEDS: FLOMAX PO SCH (08:45)
[2018-12-17] MEDS: LANOXIN PO SCH (08:46)
[2018-12-17] MEDS: FERROUS SULFATE PO SCH (08:47)
[2018-12-17] MEDS: COLACE PO SCH (08:47)
--- NOTE | 2018-12-17 10:29 | CM.DICTOOL ---
ADMISSION: 12/13/18 12:30 DISCHARGE: DECEMBER 17, 2018 DATE OF SERVICE: 12/17/18 FINAL DIAGNOSIS CHF W/ LEG EDEMA ATRIAL FIBRILLATION (XARELTO) CAD ANEMIA NEPHROLITHIASIS, LEFT ATAXIA AAA - 1987 ANEURYSMS - ROSETTE. ILIAC DYSLIPIDEMIA HYPOTENSION HISTORY OF HYPERTENSION HISTORY OF BRONCHITIS EXTERNAL HEMORRHOIDS W/ RECTAL BLEEDING - LAST WEEK CKD STAGE 3 RENAL ARTERY STENOSIS OA HYPOTHYROIDISM DEPRESSION CABG 1988 LEFT URETER STENT 11/2018 UMBILICAL HERNIA REPAIR 1988 AAA REPAIR 1987 CHOLECYSTECTOMY FORMER SMOKER COLONOSCOPY - 05/08 DR. HERNANDEZ PFT, 2017: MODERATE COPD ECHOCARDIOGRAM 11/2018: BORDERLINE LVH HYPOKINETIC SEPTAL WALL DILATED AORTIC ROOT AND ENLARGED LEFT ATRIAL CAVITY LVEF 40-45% LAST VITALS Temp Pulse Resp BP Pulse Ox 97.9 F 96 H 18 96/58 L 97 12/17/18 05:06 12/17/18 08:46 12/17/18 05:06 12/17/18 05:06 12/17/18 05:06 TAKE THESE MEDICATIONS AT HOME Diazepam (Valium) 5 mg PO BEDTIME PRN PRN Reason: for sleep Digoxin (Lanoxin) 125 mcg PO MoWeFrSa@0900 [facility] Last Admin: 12/17/18 08:46 Dose: 125 mcg Docusate Sodium (Colace) 100 mg PO BID [facility] Last Admin: 12/17/18 08:47 Dose: 100 mg Ferrous Sulfate (Ferrous Sulfate) 324 mg PO DAILY [facility] Last Admin: 12/17/18 08:47 Dose: 324 mg Furosemide (Lasix) 20 mg PO QDAC [facility] Last Admin: 12/17/18 06:08 Dose: 20 mg Levothyroxine Sodium (Synthroid) 100 mcg PO QDAC [facility] Last Admin: 12/17/18 06:08 Dose: 100 mcg Midodrine (Midodrine) 5 mg PO BID [facility] Last Admin: 12/17/18 08:45 Dose: 5 mg Non-Formulary Medication (Tramadol Hcl/Acetaminophen [Tramadol-Acetaminophn 37.5 -325]) 1 tab PO Q8H PRN PRN Reason: Mild to moderate pain Potassium Chloride (Micro-K Cap) 10 meq PO DAILYWM [facility] Last Admin: 12/17/18 08:45 Dose: 10 meq Rivaroxaban (Xarelto) 15 mg PO DAILY [facility] Last Admin: 12/17/18 08:42 Dose: 15 mg Tamsulosin HCl (Flomax) 0.4 mg PO DAILY [facility] Last Admin: 12/17/18 08:45 Dose: 0.4 mg Simvastatin 20 mg PO BEDTIME Last Admin: ALLERGIES lisinopril Adverse Reaction (Verified 06/04/16 22:59) Dizziness olmesartan [From Benicar] Adverse Reaction (Verified 06/04/16 22:59) Dizziness DISCONTINUED MEDICATIONS LASIX 10 MG DAILY MEDICATION CHANGES LASIX INCREASED TO 20 MG DAILY NEW PRESCRIPTIONS: NONE SMOKING: NOT APPLICABLE DISEASE SPECIFIC EDUCATION: USE OF OXYGEN LEG EDEMA AND ELEVATING LEGS NUTRITION ACTIVITY LAB REVIEW: 12/17/18 04:58 12/17/18 04:58 12/17/18 04:58: Sodium 137.0, Potassium 4.19, Chloride 98.6, Carbon Dioxide 34.9 H, Anion Gap 7.69, BUN 28.3 H, Creatinine 1.61 H, Estimated GFR (MDRD) 41.00, BUN/Creatinine Ratio 17.57, Glucose 101.7, Calcium 8.32 L, Total Bilirubin 0.52, AST 20.2, ALT 9.4, Alkaline Phosphatase 55.2 L, Total Protein 6.19 L, Albumin 3.23 L, Globulin 2.96, Albumin/Globulin Ratio 1.09 12/17/18 04:58: WBC 5.00, RBC 3.31 L, Hgb 10.2 L, Hct 32.6 L, MCV 98.5 H, MCH 30.8, MCHC 31.3 L, RDW Coeff of Lloyd 12.0, Plt Count 203, Immature Gran % (Auto) 0.2, Neut % (Auto) 59.0, Lymph % (Auto) 20.0, [place] % (Auto) 9.6, Eos % (Auto) 10.6 H, Baso % (Auto) 0.6, Immature Gran # (Auto) 0.0, Neut # (Auto) 3.0, Lymph # (Auto) 1.0, [place] # (Auto) 0.5, Eos # (Auto) 0.5, Baso # (Auto) 0.0 PLAN: DISCHARGE HOME DIET: RESUME DIET TOLERATED, NO ADDED SALT. INCLUDE PROTEIN ACTIVITY: RESUME TOLERATED, USE WALKER WITH AMBULATION ELEVATE THE LEGS HIGHER THAN THE HIPS WHEN SITTING AND WHEN IN BED TO HELP WITH EDEMA TO THE LOWER EXTREMITIES AN APPOINTMENT IS SCHEDULED WITH DR. LEWIS/CRISTIANA HERNANDEZ APRN ON AT 2 PM PLEASE KEEP ALCANTAR CATHETER IN PLACE INSERTED BY DR. MYRA CONTRERAS. AN OUTPATIENT PROCEDURE IS PLANNED ON Dec AT [facility] (LITHOTRIPSY) CODE STATUS: FULL CODE MR. KIMBALL IS ALERT AND ORIENTED X 3. HE IS AWARE OF DISCHARGE PLANS FOR TODAY AND IS AGREEABLE. MR. KIMBALL LIVES ALONE AND IS INDEPENDENT WITH ACTIVITIES OF DAILY LIVING. 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 HE IS AMBULATORY IN THE ROOM AND HALLWAY WITH USE OF A ROLLATOR. HE REPORTS HE HAS A ROLLATOR IN HIS CAR FOR HIS OWN PERSONAL USE. MR. KIMBALL REPORTS HE PRIMARILY USES THE WALKER DUE TO LEG WEAKNESS AND PAIN TO THE LEFT KNEE. A ALCANTAR CATHETER WAS PRESENT ON HIS ADMISSION TO THE HOSPITAL. THE PATIENT WILL BE DISCHARGED HOME WITH THE CATHETER IN PLACE INSTRUCTED BY DR. CONTRERAS'S OFFICE. THE CATHETER WAS INSERTED ON November. MR. KIBMALL IS CONTINENT OF BOWEL. HE DENIES ABDOMINAL PAIN OR NAUSEA. MEAL INTAKES ARE GOOD AT 75-100%. LIQUID INTAKE IS GOOD. SKN TURGOR IS GOOD. SKIN IS INTACT. THE LEGS ARE NO LONGER EDEMATOUS. MR. KIMBALL HAS EXPERIENCED SHORTNESS OF AIR WITH EXERTION DURING HIS HOSPITAL STAY. HE WAS NOTED TO HAVE DECREASED OXYGEN SATURATION IN THE UPPER 80'S WITH EXERTION. A 3 STEP OXIMETRY DETERMINED THE PATIENT WOULD NEED OXYGEN AT DISCHARGE. HE WAS AGREEABLE. OXYGEN HAS BEEN ARRANGED THRU [facility] [employer]. MD CRISTIANA GRAHAM APRN
--- NOTE | 2018-12-17 11:56 | PN ---
DATE OF SERVICE: 12/14/18 SUBJECTIVE: The patient was seen and examined with the Nurse Practitioner. The patient is feeling better and breathing better. Edema is much less than yesterday. It is now 1+ pitting. No distress. Echo showed hypokinetic left ventricle especially septal wall with ejection fraction 40-45%. Previous echo has 54% ejection fraction. LV cavity size is normal. LA cavity size is markedly enlarged more than 5cm. Valvular structures are acceptable. The patient is on 20mg IV Lasix. The patient has a Miguel catheter and a stent. He is afebrile. We are waiting on records from [facility] where he hospitalized for observation 24 hours after undergoing procedure having a stent put in and the left ureter. TIME SPENT: More than 30 minutes. Plan and coordination of the patient's care discussed in the presence of nurse. DAVID
--- NOTE | 2018-12-21 09:55 | PN ---
DATE OF SERVICE: 12/15/18 SUBJECTIVE: The patient was seen and examined with Nurse Practitioner. The patient's condition seems to be improving. He has been started on physical therapy. He is up and about. Leg edema is much less. CHF symptoms are subsiding. TIME SPENT: More than 30 minutes. Plan and coordination of the patient's care discussed in the presence of nurse. DAVID
--- NOTE | 2018-12-21 11:35 | PN ---
DATE OF SERVICE: 12/17/18 SUBJECTIVE: The patient is up and about doing well. No symptoms of CHF. No fever or chills or exertional chest discomfort. REVIEW OF SYSTEMS: CONSTITUTIONAL: No night sweats. No fatigue, malaise, lethargy. No fever or chills. HEENT: Eyes: No visual changes. No eye pain. No eye discharge. ENT: No runny nose. No epistaxis. No sinus pain. No sore throat. No odynophagia. No congestion. RESPIRATORY: No cough, no congestion. No hemoptysis. No shortness of breath. CARDIOVASCULAR: No angina symptoms. No CHF symptoms. No atypical chest pain for CAD. No palpitations. No PND. No orthopnea. GASTROINTESTINAL: No abdominal pain. No nausea or vomiting. No diarrhea or constipation. No hematemesis. No hematochezia. GENITOURINARY: No urgency. No frequency. No dysuria. No hematuria. No obstructive symptoms. No discharge. No pain. No significant abnormal bleeding. MUSCULOSKELETAL: No musculoskeletal pain; no joint swelling. NEUROLOGICAL: No headache. No neck pain. No syncope. No seizures. No dizziness. PSYCHIATRIC: Not anxious. No depression. No suicidal thoughts. No homicidal thoughts. SKIN: No rash. No lesions. No wounds. ENDOCRINE: No unexplained weight loss. No weight gain. HEMATOLOGIC/LYMPHATIC: No anemia. No purpura. No petechiae. No prolonged or excessive bleeding. No palpable lymph nodes. PHYSICAL EXAMINATION: HEENT: Head normocephalic, atraumatic. Eyes: Extraocular muscles are intact. Pupils are equal, round and reactive to light and accommodation. Ears: No lesions. Nose appeared normal. Throat: No exudate or erythema. NECK: Supple. No JVD, no carotid bruit. No lymphadenopathy or thyromegaly. LUNGS: Decreased breath sounds but clear to auscultation. Percussion note normal. Chest symmetrical. HEART: S1, S2, no S3. No murmurs. No cyanosis or clubbing. No ascites. Pulses: Dorsalis pedis and posterior tibial pulses +1 to +2 bilaterally. ABDOMEN: Soft. Nontender. Bowel sounds active. No CVA tenderness. No mass felt. Appetite has improved. EXTREMITIES: No edema. Full range of motion of all extremities, equal. NEUROLOGIC: No focal deficit. Cranial nerves II through XII are grossly intact. No headache, no double vision or headache. SKIN: Not dry. Intact. Turgor - normal. LYMPHATIC: No palpable lymph nodes/no lymphedema. MUSCULOSKELETAL: Normal joints with no swelling. Muscle tone is normal. Strength has improved. The patient has been on physical therapy. PLAN: 1. Discharge him home on increased dose of Lasix 20mg 2. The patient had fluid overload likely from IV fluids and left ureter stone with hospitalization CONDITION: Stable. TIME SPENT: More than 30 minutes. Plan and coordination of the patient's care discussed in the presence of nurse. DAVID
--- NOTE | 2018-12-21 11:49 | DS ---
DATE OF SERVICE: 12/17/18 FINAL DIAGNOSIS: CHF W/LEG EDEMA ATRIAL FIBRILLATION (XARELTO) CAD ANEMIA NEPHROLITHIASIS, LEFT ATAXIA AAA - 1987 ANEURYSMS - ROSETTE. ILIAC DYSLIPIDEMIA HYPOTENSION HISTORY OF HYPERTENSION HISTORY OF BRONCHITIS EXTERNAL HEMORRHOIDS W/ RECTAL BLEEDING - LAST WEEK CKD STAGE 3 RENAL ARTERY STENOSIS OA HYPOTHYROIDISM DEPRESSION CABG 1989 LEFT URETER STENT 11/2018 UMBILICAL HERNIA REPAIR 1988 AAA REPAIR 1987 CHOLECYSTECTOMY FORMER SMOKER COLONOSCOPY - 05/08 DR. HERNANDEZ PFT, 2017: MODERATE COPD ECHOCARDIOGRAM 11/2018: BORDERLINE LVH HYPOKINETIC SEPTAL WALL DILATED AORTIC ROOT AND ENLARGED LEFT ATRIAL CAVITY LVEF 40-45% LAST VITALS: Temp Pulse Resp BP Pulse Ox 97.9 F 96 H 18 96/58 L 97 12/17/18 05:06 12/17/18 08:46 12/17/18 05:06 12/17/18 05:06 12/17/18 05:06 PLAN: DISCHARGE HOME. ELEVATE THE LEGS HIGHER THAN THE HIPS WHEN SITTING AND WHEN IN BED TO HELP WITH EDEMA TO THE LOWER EXTREMITIES. AN APPOINTMENT IS SCHEDULED WITH DR. LEWIS/CRISTIANA HERNANDEZ APRN ON AT 2 PM. PLEASE KEEP ALCANTAR CATHETER IN PLACE INSERTED BY DR. MYRA CONTRERAS. AN OUTPATIENT PROCEDURE IS PLANNED ON Dec AT [facility] (LITHOTRIPSY). CODE STATUS: FULL CODE TAKE THESE MEDICATIONS AT HOME: Diazepam (Valium) 5 mg PO BEDTIME PRN Digoxin (Lanoxin) 125 mcg PO MoWeFrSa@0900 [facility] Docusate Sodium (Colace) 100 mg PO BID [facility] Ferrous Sulfate (Ferrous Sulfate) 324 mg PO DAILY [facility] Furosemide (Lasix) 20 mg PO QDAC [facility] Levothyroxine Sodium (Synthroid) 100 mcg PO QDAC [facility] Midodrine (Midodrine) 5 mg PO BID [facility] Non-Formulary Medication (Tramadol Hcl/Acetaminophen [Tramadol-Acetaminophn 37.5 -325]) 1 tab PO Q8H PRN Potassium Chloride (Micro-K Cap) 10 meq PO DAILYWM [facility] Rivaroxaban (Xarelto) 15 mg PO DAILY [facility] Tamsulosin HCl (Flomax) 0.4 mg PO DAILY [facility] Simvastatin 20 mg PO BEDTIME ALLERGIES: lisinopril Adverse Reaction (Verified 06/04/16 22:59) olmesartan [From Benicar] Adverse Reaction (Verified 02/15/17 22:59) DISCONTINUED MEDICATIONS: LASIX 10 MG DAILY MEDICATION CHANGES: LASIX INCREASED TO 20 MG DAILY NEW PRESCRIPTIONS: NONE SMOKING: NOT APPLICABLE DISEASE SPECIFIC EDUCATION: USE OF OXYGEN LEG EDEMA AND ELEVATING LEGS NUTRITION ACTIVITY DIET: RESUME DIET TOLERATED, NO ADDED SALT. INCLUDE PROTEIN ACTIVITY: RESUME TOLERATED, USE WALKER WITH AMBULATION HOSPITAL COURSE: 88 year old white male hospitalized through the office with leg edema, +3 pitting with some symptoms of CHF. The patient was treated with IV Lasix everyday for 3-4 days during the stay in the hospital. The patient's edema has practically resolved. His lungs has more air entry with practically few dry crepitations. No JVP or S3. The patient has a Alcantar Catheter which is going to stay until the patient is seen by Myra davis urologist at [place], 20 days from now. The patient has left ureteric stone with stent placement in the left ureter. He has no other complication. His Alcantar catheter is draining well. The patient was educated about CHF and advised to cut down on salt and keep the leg elevated at night, higher than the hips. Condition at the time discharge is stable. The patient had echocardiogram done which showed LV ejection 40-45% with Hypokinetic septum. The patient had coronary bypass surgery. His condition is otherwise stable. He is to be seen in 7 days on followup. The patient is DNR. TIME SPENT: More than 60 minutes. DAVID
--- NOTE | 2018-12-21 13:08 | PN ---
12/13/18: Level 5 12/14/18: Intermediate 12/15/18: Intermediate 12/16/18: Intermediate 12/17/18: D as in discharge MTDD
== END 2018-12-17 12:56 | disposition home or self-care (01) | DRG 948 ==
LOC: MEDSURG B 12:30
PROVIDERS: ADMIT Internal Medicine; ATTEND Internal Medicine
DX: R60.0 Localized edema (principal); I48.2 Chronic atrial fibrillation; I25.10 Atherosclerotic heart disease of native coronary artery without angina pectoris; I95.9 Hypotension, unspecified; I70.1 Atherosclerosis of renal artery; I73.9 Peripheral vascular disease, unspecified; D64.9 Anemia, unspecified; N20.0 Calculus of kidney; E78.5 Hyperlipidemia, unspecified; N18.3 Chronic kidney disease, stage 3 (moderate); M19.90 Unspecified osteoarthritis, unspecified site; M54.31 Sciatica, right side; R27.0 Ataxia, unspecified; R06.02 Shortness of breath; F32.9 Major depressive disorder, single episode, unspecified; Z79.01 Long term (current) use of anticoagulants
CPT/HCPCS: 36415; 80053; 80162; 81001; 82550; 83880; 84439; 84484; 85025; 87081; 87086; 93005; 93010; 94761